=== PATIENT | female | born 1980 | race Caucasian/White ===

== ENCOUNTER 2017-11-14 09:12 | Emergency (ER) | payer OTHER ==
[2017-11-14 09:18] VITALS: RESP 16; TEMP 98.1
[2017-11-14] MEDS ORDERED: SODIUM CHLORIDE 0.9% 1,000 ML IV ONE (09:27)
[2017-11-14 09:44] LABS: Basophils % (A) 0 %; Eosinophils # (A) 0.3 k/uL (0-0.7); Eosinophils % (A) 5 %; HCT 45.3 % (34.0-46.0); HGB 15.5 gm/dL (11.4-16.0); Lymphocytes # (A) 1.6 k/uL (1.0-4.8); Lymphocytes % (A) 23 %; MCH 32.2 pg (25.0-35.0); MCHC 34.2 g/dL (31.0-37.0); MCV 94.2 fL (80.0-100.0); Mean Platelet Volume 7.6; Monocytes # (A) 0.3 k/uL (0-1.0); Monocytes % (A) 4 %; Neutrophils # (A) 4.7 k/uL (1.3-7.7); Neutrophils % (A) 67 %; Platelet Count 160 k/uL (150-450); RBC 4.81 m/uL (3.80-5.40); RDW 12.9 % (11.5-15.5); WBC 6.9 k/uL (3.8-10.6)
[2017-11-14 09:50] LABS: Appearance,Urine Cloudy (Clear); Bilirubin,Urine Negative (Negative); Blood,Urine Trace (Negative); Color,Urine Yellow; Glucose,Urine (UA) Negative (Negative); Ketones,Urine Negative (Negative); Leukocyte Esterase,Urine Negative (Negative); Mucus,Urine Many /hpf; Nitrite,Urine Negative (Negative); PH, Urine 5.5 (5.0-8.0); Protein,Urine Trace (Negative); RBC,Urine 1 /hpf (0-5); Squamous Epithelial Cell,Urine 8 /hpf (0-4); WBC,Urine 2 /hpf (0-5)
[2017-11-14 09:55] LABS: ALT 27 U/L (9-52); AST 22 U/L (14-36); Albumin 3.9 g/dL (3.5-5.0); Alkaline Phosphatase 52 U/L (38-126); Amylase 50 U/L (30-110); Anion Gap 11 mmol/L; Blood Urea Nitrogen 6 mg/dL (7-17); Carbon Dioxide 24 mmol/L (22-30); Chloride 105 mmol/L (98-107); Glucose 101 mg/dL (74-99); Lipase 71 U/L (23-300); Potassium 3.9 mmol/L (3.5-5.1); Sodium 140 mmol/L (137-145); Total Bilirubin 0.4 mg/dL (0.2-1.3); Total Protein 6.2 g/dL (6.3-8.2)
--- NOTE | 2017-11-14 10:28 | CT ---
EXAMINATION TYPE: CT abdomen pelvis w con DATE OF EXAM: 11/14/2017 COMPARISON: NONE HISTORY: 37-year-old female with abdominal pain-umbilical and infraumbilical areas. TECHNIQUE: Contiguous axial scanning of the abdomen and pelvis following administration of 100 ml Iso nicho 300 IV contrast. Delayed images through the kidneys and coronal/sagittal reconstructions perform ed. CT DLP: 2023.6 mGycm Automated exposure control for dose reduction was used. FINDINGS: Heart normal size without pericardial effusion. Lung bases clear without pleural effusion. Liver enlarged measuring 19.8 cm. No focal liver lesion. Portal venous system is patent. No biliary d uctal dilatation. Adrenal glands, kidneys, spleen with small hilar splenule, and pancreas show no gross abnormality. Some nonenlarged and borderline sized upper to mid abdominal mesenteric lymph nodes measuring up to 6 mm. While the appendix is not discretely visualized, there are no findings to suggest acute appendicitis. There is wall thickening and pericolonic inflammatory fat stranding involving a relatively long segme nt from the mid transverse colon to the upper descending colon. Additional circumferential mild wall thickening from the lower descending colon to the rectum may relate to incomplete distention or addit ional mild colitis. No dilated small bowel, free fluid, or free air. Uterus and both ovaries are visualized with follicular change. Arcuate configuration to the uterus. B ilateral tubal ligation clips. No abnormal fluid collection in the pelvis or pelvic lymphadenopathy. Bones: Mild multilevel degenerative disc disease. IMPRESSION: 1. EXAM POSITIVE FOR MILD ACUTE COLITIS EXTENDING FROM THE MID TRANSVERSE COLON TO THE UPPER DESCENDI NG COLON. NO ABSCESS OR FREE AIR. CORRELATE FOR INFECTIOUS OR INFLAMMATORY CAUSES. 2. ADDITIONAL MILD WALL THICKENING FROM THE LOWER DESCENDING COLON TO THE RECTUM COULD BE SECONDARY T O POOR DISTENTION OR ADDITIONAL MILD COLITIS. 3. HEPATOMEGALY (19.8 CM).
--- NOTE | 2017-11-14 10:46 | ED ---
Abdominal Pain HPI - General Chief Complaint: Abdominal Pain Stated Complaint: Abd.pain Time Seen by Provider: 11/14/17 09:23 Source: patient, RN notes reviewed Mode of arrival: ambulatory Limitations: no limitations - History of Present Illness Initial Comments: 37-year-old female presents emergency Department with chief complaint of abdominal pain 9 days. Patient states pain is progressively getting worse not improving. She has had intermittent nausea and minimal diarrhea. Denies any mom and she is a. Denies fever, chills, headache, dizziness dysuria, hematuria. Patient states that she did have exploratory surgery at age 21 and she's had tubal ligation. Patient denies any current vaginal bleeding or vaginal discharge. Patient states she just underwent a menstrual cycle. Patient states that she's never had pain like this in the past. - Related Data Home Medications Medication Instructions Recorded Confirmed Vitamin C/Biotin [Hair, Skin and 1 tab PO DAILY 11/14/17 11/14/17 Nails] Previous Rx's Medication Instructions Recorded Ciprofloxacin HCl [Cipro] 500 mg PO Q12HR #20 tablet 11/14/17 metroNIDAZOLE [Flagyl] 500 mg PO TID #30 tab 11/14/17 Allergies Allergy/AdvReac Type Severity Reaction Status Date / Time cefaclor [From Ceclor] Allergy Rash/Hives Verified 11/14/17 09:24 Review of Systems ROS Statement: Those systems with pertinent positive or pertinent negative responses have been documented in the HPI. ROS Other: All systems not noted in ROS Statement are negative. Past Medical History Past Medical History: No Reported History History of Any Multi-Drug Resistant Organisms: None Reported Past Surgical History: Tubal Ligation Additional Past Surgical History / Comment(s): Abd, dental Past Psychological History: No Psychological Hx Reported Smoking Status: Current every day smoker Past Alcohol Use History: Occasional Past Drug Use History: None Reported General Exam Limitations: no limitations General appearance: alert, in no apparent distress Head exam: Present: atraumatic, normocephalic, normal inspection Eye exam: Present: normal appearance, PERRL, EOMI. Absent: scleral icterus, conjunctival injection, periorbital swelling Respiratory exam: Present: normal lung sounds bilaterally. Absent: respiratory distress, wheezes, rales, rhonchi, stridor Cardiovascular Exam: Present: regular rate, normal rhythm, normal heart sounds. Absent: systolic murmur, diastolic murmur, rubs, gallop, clicks GI/Abdominal exam: Present: soft, tenderness (Moderate midabdominal tenderness) , normal bowel sounds. Absent: distended, guarding, rebound, rigid Back exam: Absent: CVA tenderness (R), CVA tenderness (L) Skin exam: Present: warm, dry, intact, normal color. Absent: rash Course Vital Signs 11/14/17 11/14/17 09:14 10:50 Temperature 98.1 F Pulse Rate 85 54 L Respiratory 16 16 Rate Blood Pressure 121/86 122/82 O2 Sat by Pulse 99 100 Oximetry Medical Decision Making - Medical Decision Making 37-year-old female presents for abdominal pain 9 days. Patient had lab work, CT which shows colitis. Patient was offered admission versus discharge on oral medications. Patient prefers to be discharged. Patient be discharged on Cipro , Flagyl advised liquid diet and progress as tolerated. She'll follow-up with on-call GI Dr. Betancourt for colonoscopy. Return parameters were discussed. - Lab Data Result diagrams: 11/14/17 09:30 11/14/17 09:30 Lab Results 11/14/17 11/14/17 11/14/17 Range/Units 09:30 09:30 09:30 WBC 6.9 (3.8-10.6) k/uL RBC 4.81 (3.80-5.40) m/uL Hgb 15.5 (11.4-16.0) gm/dL Hct 45.3 (34.0-46.0) % MCV 94.2 (80.0-100.0) fL MCH 32.2 (25.0-35.0) pg MCHC 34.2 (31.0-37.0) g/dL RDW 12.9 (11.5-15.5) % Plt Count 160 (150-450) k/uL Neutrophils % 67 % Lymphocytes % 23 % Monocytes % 4 % Eosinophils % 5 % Basophils % 0 % Neutrophils # 4.7 (1.3-7.7) k/uL Lymphocytes # 1.6 (1.0-4.8) k/uL Monocytes # 0.3 (0-1.0) k/uL Eosinophils # 0.3 (0-0.7) k/uL Basophils # 0.0 (0-0.2) k/uL Sodium 140 (137-145) mmol/L Potassium 3.9 (3.5-5.1) mmol/L Chloride 105 (98-107) mmol/L Carbon Dioxide 24 (22-30) mmol/L Anion Gap 11 mmol/L BUN 6 L (7-17) mg/dL Creatinine 0.64 (0.52-1.04) mg/dL Est GFR (CKD-EPI)AfAm >90 (>60 ml/min/1.73 sqM) Est GFR (CKD-EPI)NonAf >90 (>60 ml/min/1.73 sqM) Glucose 101 H (74-99) mg/dL Calcium 9.0 (8.4-10.2) mg/dL Total Bilirubin 0.4 (0.2-1.3) mg/dL AST 22 (14-36) U/L ALT 27 (9-52) U/L Alkaline Phosphatase 52 (38-126) U/L Total Protein 6.2 L (6.3-8.2) g/dL Albumin 3.9 (3.5-5.0) g/dL Amylase 50 (30-110) U/L Lipase 71 (23-300) U/L Urine Color Urine Appearance (Clear) Urine pH (5.0-8.0) Ur Specific [place] (1.001-1.035) Urine Protein (Negative) Urine Glucose (UA) (Negative) Urine Ketones (Negative) Urine Blood (Negative) Urine Nitrite (Negative) Urine Bilirubin (Negative) Urine Urobilinogen (<2.0) mg/dL Ur Leukocyte Esterase (Negative) Urine RBC (0-5) /hpf Urine WBC (0-5) /hpf Ur Squamous Epith Cells (0-4) /hpf Urine Mucus (None) /hpf Urine HCG, Qual Not Detected (Not Detectd) 11/14/17 Range/Units 09:30 WBC (3.8-10.6) k/uL RBC (3.80-5.40) m/uL Hgb (11.4-16.0) gm/dL Hct (34.0-46.0) % MCV (80.0-100.0) fL MCH (25.0-35.0) pg MCHC (31.0-37.0) g/dL RDW (11.5-15.5) % Plt Count (150-450) k/uL Neutrophils % % Lymphocytes % % Monocytes % % Eosinophils % % Basophils % % Neutrophils # (1.3-7.7) k/uL Lymphocytes # (1.0-4.8) k/uL Monocytes # (0-1.0) k/uL Eosinophils # (0-0.7) k/uL Basophils # (0-0.2) k/uL Sodium (137-145) mmol/L Potassium (3.5-5.1) mmol/L Chloride (98-107) mmol/L Carbon Dioxide (22-30) mmol/L Anion Gap mmol/L BUN (7-17) mg/dL Creatinine (0.52-1.04) mg/dL Est GFR (CKD-EPI)AfAm (>60 ml/min/1.73 sqM) Est GFR (CKD-EPI)NonAf (>60 ml/min/1.73 sqM) Glucose (74-99) mg/dL Calcium (8.4-10.2) mg/dL Total Bilirubin (0.2-1.3) mg/dL AST (14-36) U/L ALT (9-52) U/L Alkaline Phosphatase (38-126) U/L Total Protein (6.3-8.2) g/dL Albumin (3.5-5.0) g/dL Amylase (30-110) U/L Lipase (23-300) U/L Urine Color Yellow Urine Appearance Cloudy H (Clear) Urine pH 5.5 (5.0-8.0) Ur Specific [place] 1.020 (1.001-1.035) Urine Protein Trace H (Negative) Urine Glucose (UA) Negative (Negative) Urine Ketones Negative (Negative) Urine Blood Trace H (Negative) Urine Nitrite Negative (Negative) Urine Bilirubin Negative (Negative) Urine Urobilinogen 2.0 (<2.0) mg/dL Ur Leukocyte Esterase Negative (Negative) Urine RBC 1 (0-5) /hpf Urine WBC 2 (0-5) /hpf Ur Squamous Epith Cells 8 H (0-4) /hpf Urine Mucus Many H (None) /hpf Urine HCG, Qual (Not Detectd) Disposition Clinical Impression: Abdominal pain, Colitis Disposition: HOME SELF-CARE Condition: Stable Instructions: Colitis (ED) Additional Instructions: Please return to the Emergency Department if symptoms worsen or any other concerns. Prescriptions: Ciprofloxacin HCl [Cipro] 500 mg PO Q12HR #20 tablet metroNIDAZOLE [Flagyl] 500 mg PO TID #30 tab Is patient prescribed a controlled substance at d/c from ED?: No Referrals: Jose Laurent DO [Primary Care Provider] - 1-2 days Sade yDe MD [STAFF PHYSICIAN] - 1-2 days Time of Disposition: 10:55
[2017-11-14 10:51] VITALS: BP 122/82; PULSE 54
== END 2017-11-14 11:03 | disposition home or self-care (01) ==
LOC: EC 09:12
DX: K52.9 Noninfective gastroenteritis and colitis, unspecified (principal); F17.200 Nicotine dependence, unspecified, uncomplicated; Z79.899 Other long term (current) drug therapy; Z88.1 Allergy status to other antibiotic agents
CPT/HCPCS: 36415; 80053; 82150; 83690; 85025; 81001; 81025; 74177; 99284; 96360; Q9967

== ENCOUNTER → 2019-02-02 | Outpatient (CLI) | payer OTHER ==
--- NOTE | 2019-02-02 11:52 | MM ---
Reason for exam: screening (asymptomatic). Baseline mammogram. History: Family history of breast cancer in maternal aunt at age 65. Physical Findings: Nurse Summary: 0.5cm nodule in the left breast at 10 o'clock (nurse TM). MG 3D Screening Mammo W/Cad Bilateral CC and MLO view(s) were taken. The breast tissue is heterogeneously dense. This may lower the sensitivity of mammography. Left palpable marker at 8-10 o'clock. Underlying 1cm focal asymmetry. Subareolar asymmetric density right MLO view does not persist on 3D. These results were verbally communicated with the patient and result sheet given to the patient on 02/02/19. ASSESSMENT: Incomplete: need additional imaging evaluation, BI-RAD 0 RECOMMENDATION: Ultrasound of the left breast. (targeted to palpable)
--- NOTE | 2019-02-02 11:53 | USB ---
Reason for exam: additional evaluation requested from abnormal screening. History: Family history of breast cancer in maternal aunt at age 65. US Breast Workup Limited LT Left limited breast ultrasound including focal area of concern, retroareolar and axilla demonstrates a 11 x 6 x 10mm oval, solid, hypoechoic lesion at 9 o'clock BB. Scanned 6-9 o'clock. These results were verbally communicated with the patient and result sheet given to the patient on 02/02/19. ASSESSMENT: Suspicious, BI-RAD 4 RECOMMENDATION: Surgical consultation and ultrasound core biopsy of the left breast. Called Dr. Brdaley with mammographic findings and has scheduled an appointment for the patient for 03/19/19 at 10:[address] Jolly. Biopsy scheduled for 03/19/19 at 12:20. PRELIMINARY REPORT CALLED AND FAXED TO DR. JOLLY ON 02/02/19.
== END | disposition home or self-care (01) ==
LOC: RADMAMWWP 09:39
PROVIDERS: ATTEND Obstetrics & Gynecology
DX: Z08 Encounter for follow-up examination after completed treatment for malignant neoplasm (principal); Z80.3 Family history of malignant neoplasm of breast; R92.8 Other abnormal and inconclusive findings on diagnostic imaging of breast
CPT/HCPCS: 77063; 77067

== ENCOUNTER → 2019-03-19 | Day surgery (SDC) | payer OTHER ==
[2019-03-19 12:11] VITALS: RESP 16; BMI 38.8
[2019-03-19 12:56] VITALS: BP 130/68; PULSE 70; TEMP 97.9
--- NOTE | 2019-03-19 14:42 | USB ---
EXAMINATION TYPE: US biopsy breast VAD LT, Postbiopsy diagnostic mammo LT wo CAD DATE OF EXAM: 03/19/2019 CLINICAL HISTORY: 38-year-old female R92.8 abn mammogram. TECHNIQUE: Ultrasound guided core biopsy of the left breast. COMPARISON: 02/02/2019 FINDINGS: The procedure of ultrasound guided core biopsy was explained to the patient. Benefits, alternatives, and risks were discussed. An informed consent was then obtained. The patient was placed in supine positioning for imaging and for the procedure. The overlying skin was prepped and draped in usual sterile fashion. Lidocaine was used as anesthetic into the skin followed by lidocaine/epinephrine mixture into the subcutaneous tissue up to area of concern in the 9:00 left breast. Under ultrasound guidance, a 13-gauge vacuum-assisted mammotome Elite biopsy gun device was used to obtain 5 core samples. Following this, a ribbon clip was left in lesion. The patient tolerated the procedure well without any immediate complication. The patient was kept in the radiology department for short stay after the procedure and then discharged home in stable condition. Postprocedure mammogram shows ribbon clip at the mammographic mass anterior 9:00 position. IMPRESSION: Successful, uncomplicated ultrasound guided core biopsy of area of concern in the 9:00 left breast, full pathology results to follow. Fibroadenoma is suspected. Pathology Results: Benign LEFT BREAST LESION AT 9:00 POSITION, NEEDLE CORE BIOPSIES: Focal PASH with background fibrocystic changes. Recommendation Follow up mammogram of the left breast in 6 months Surgical consult of the left breast. (YAYA) KEHINDE
== END ==
LOC: RADUSWWP 10:25
PROVIDERS: ATTEND Surgery
DX: N60.12 Diffuse cystic mastopathy of left breast (principal); N64.89 Other specified disorders of breast
CPT/HCPCS: 88305; 77065; 19083; A4648; J2001; 88341

== ENCOUNTER → 2019-03-19 | Outpatient (CLI) | payer OTHER ==
[2019-03-19 10:44] VITALS: BP 133/87; PULSE 78; RESP 16; TEMP 98.3; BMI 38.8
--- NOTE | 2019-03-19 11:30 | P.GSHP ---
History of Present Illness H&P Date: 03/19/19 Chief Complaint: abnormal ultrasound María Elena is a 38 -year-old white female who had her first ever mammogram performed on . This revealed a 1 cm focal asymmetry in the left breast near palpable area of concern. An ultrasound was recommended. The ultrasound revealed an 11 x 10 cm solid lesion at 9:00 the breast was scanned from 6-9. This was considered suspicious BIRADS 4 and ultrasound-guided core biopsy was recommended. The patient had not felt anything of concern in her breasts. The patient states that time she has twinges of pain in her breast it is greatest in the inner quadrants of the left breast. The pain is not related to her menstrual cycle. 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 The pain is in her breasts. Approximately 2 months ago the patient did note bilateral milky nipple discharge and this has stopped. The patient states her breasts become engorged prior to her menstrual cycle but otherwise no specific changes in her breasts. Her menstrual cycles are irregular. She is having a D&C next month. The patient drinks approximately a half a pot of coffee per day. The patient smokes a half a pack of cigarettes per day she is not exposed to secondhand smoke. She doesn't really chocolate. Family History: 1. maternal aunt: bilateral mastectomy at 59 2. maternal aunt: ovarian cancer 3. maternal aunt: cervical cancer Hormonal History: menarche: 17 , breast fed: yes, first born at 22 BCP: 9 months hormones: none Surgical history: 1. exploratory lap endometriosis 2. tubal 3. dental surgery 4. colonoscopy Medical history: none Social History: smoke: 1/2- 1 PPD for 24 years alcohol: daily drugs: none - Constitutional Constitutional: Denies chills, Denies fever - EENT Eyes: denies blurred vision, denies pain Ears: deny: decreased hearing, tinnitus Ears, nose, mouth and throat: Denies headache, Denies sore throat - Breasts Breasts: bilateral: as per HPI - Cardiovascular Cardiovascular: Denies chest pain, Denies shortness of breath - Respiratory Comment: smoker - Gastrointestinal Gastrointestinal: Denies abdominal pain, Denies diarrhea, Denies nausea, Denies vomiting - Genitourinary (Female) Genitourinary: Denies dysuria, Denies hematuria - Menstruation Menstruation: Reports cycle variable - Musculoskeletal Musculoskeletal: Reports myalgias - Integumentary Integumentary: Reports rash, Denies pruritus - Neurological Neurological: Reports numbness - Psychiatric Psychiatric: Reports anxiety - Endocrine Endocrine: Denies fatigue, Denies weight change - Hematologic/Lymphatic Comment: none - Allergic/Immunologic Allergic/Immunologic: Reports as per HPI Past Medical History Past Medical History: No Reported History History of Any Multi-Drug Resistant Organisms: None Reported Past Surgical History: Tubal Ligation Additional Past Surgical History / Comment(s): Exploratory abdominal surgery, dental Past Psychological History: Anxiety Smoking Status: Current every day smoker Past Alcohol Use History: Daily Past Drug Use History: None Reported Medications and Allergies Home Medications Medication Instructions Recorded Confirmed Type Ibuprofen [Advil] 200 mg PO Q6HR PRN 03/09/19 03/19/19 History Allergies Allergy/AdvReac Type Severity Reaction Status Date / Time cefaclor [From Ceclor] Allergy Dyspnea Verified 03/19/19 10:39 Surgical - Exam Vital Signs Temp Pulse Resp BP Pulse Ox 98.3 F 78 16 133/87 99 03/19/19 10:40 03/19/19 10:40 03/19/19 10:40 03/19/19 10:40 03/19/19 10:40 BMI 38.8 - General obese - Eyes normal ocular movement - ENT no hearing loss, no congestion - Neck no masses, trachea midline, no lymphadectomy - Cardiovascular Rhythm: regular Heart Sounds: normal: S1, S2 - Abdomen Abdomen: soft, non tender, no guarding, no rigid, no rebound - Integumentary Mild rash under the right breast would be consistent with fungal infection, - Neurologic no disoriented, no combative - Musculoskeletal normal gait - Psychiatric oriented to time, oriented to person, oriented to place, speech is normal, memory intact Breast examination: BRA 42DDD Right breast: Ptotic, pockmarks over skin were patient has scratched pimples Slight rash under the left breast consistent with fungal infection Multiple positional exam fibrocystic changes, no dominant masses or nodules of concern Right axilla: No adenopathy of concern Left breast: Multi-positional exam slight fullness at the 12 o'clock position, fibrocystic changes, no nipple discharge Left axilla: No adenopathy of concern Results Mammogram and ultrasound results reviewed Assessment and Plan Assessment: Impression: 1. Fibrocystic breast changes 2. Strong family history of cancer 3. Family history of breast cancer 4. Abnormal mammogram of the left breast 5. Abnormal ultrasound of the left breast 6. Intermittent breast discomfort, felt to be related to fibrocystic breast changes Plan: 1. Ultrasound-guided core biopsy of the left breast 2. Nystatin to the area of fungal infection in the left breast 3. Patient notes any more pimples on the breast would recommend not scratching, and calling if needed 4. We have discussed the relationship between fibrocystic breast changes/pain and caffeine/theophylline/nicotine the patient is aware and will consider cutting back 5. Follow up after ultrasound core biopsy of the left breast CC: DR. Bradley, Dr. Jose Laurent
== END | disposition home or self-care (01) ==
LOC: WWCWWP 10:24
PROVIDERS: ATTEND Surgery
DX: Z53.9 Procedure and treatment not carried out, unspecified reason (principal)

== ENCOUNTER → 2019-03-26 | Outpatient (CLI) | payer OTHER ==
[2019-03-26 09:30] VITALS: BP 127/79; PULSE 80; RESP 18; TEMP 98.2; BMI 38.8
--- NOTE | 2019-03-26 10:14 | P.PN ---
Subjective Progress Note Date: 03/26/19 Principal diagnosis: results of core biopsy of left breast María Elena is a 38-year-old white female status post ultrasound-guided core biopsy of an area of concern in the left breast and [id number]. Pathology revealed focal PASH. The actual ultrasound biopsy radiograph was reviewed with the radiologist. This is felt to be concordant. The patient postprocedure developed some swelling and ecchymosis. She is doing well. She has not had any fever or chills. Objective - Vital Signs Vital signs: Vital Signs Temp 98.2 F 03/26/19 09:25 Pulse 80 03/26/19 09:25 Resp 18 03/26/19 09:25 BP 127/79 03/26/19 09:25 Pulse Ox 96 03/26/19 09:25 Intake & Output 03/25/19 03/26/19 03/26/19 18:59 06:59 18:59 Weight 112.491 kg - Exam BMI 38.8 - Constitutional General appearance: Present: obese - EENT Eyes: Present: EOMI ENT: Present: hearing grossly normal - Neck Neck: Present: normal ROM - Respiratory Respiratory: bilateral: CTA - Cardiovascular Rhythm: regular Heart sounds: normal: S1, S2 - Integumentary Integumentary Comment(s): echymosis of the left breast at the biopsy site Integumentary: Present: normal turgor - Musculoskeletal Musculoskeletal: Present: gait normal - Psychiatric Psychiatric: Present: A&O x's 3, appropriate affect - Additional findings Additional findings: Left breast: Ecchymosis at biopsy site Biopsy site no evidence of infection Hematoma at biopsy site Right breast: Fungal infection resolved and her right breast Assessment and Plan Assessment: Impression: 1. Patient status post left breast ultrasound-guided core biopsy 2. Pathology: PASH 3. Fibrocystic breast changes 4. Maternal aunt bilateral mastectomy at 59 5. 2 maternal aunts 1 over area and a 1 cervical cancer 6. Fungal infection resolved under right breast Plan: 1. Repeat left breast mammogram and ultrasound in 6 months with physician exam 2. Is fungal infection recurs treated again with the nystatin 3. Monthly breast self exams if anything of concern patient will call us 20 minutes spent with the patient. CC: DR. Jose Laurent
== END | disposition home or self-care (01) ==
LOC: WWCWWP 09:11
PROVIDERS: ATTEND Surgery
DX: Z53.9 Procedure and treatment not carried out, unspecified reason (principal)

== ENCOUNTER 2019-03-30 06:36 | Day surgery (SDC) | payer OTHER ==
--- NOTE | 2019-03-29 10:14 | P.HPOB ---
History of Present Illness H&P Date: 03/29/19 Chief Complaint: Menorrhagia with irregular cycle This is a 38-year-old female 2 para 2 who presents for dilation and curettage with hysteroscopy and NovaSure endometrial ablation secondary to menorrhagia with irregular cycle. She complains of heavy irregular menses and intermenstrual bleeding occurring over at least 6 years. Her pelvic ultrasound showed a uterus measuring 9.7 x 4.7 x 4.1 cm with an endometrial stripe thickness of 4 mm an anterior fibroid measuring 1.47 m. Normal ovaries were noted. She would like definitive surgical treatment to control her bleeding issues. She is a smoker and therefore is not a candidate for oral contraceptives. She has had a previous tubal ligation. Obstetrical history: . History of 2 vaginal deliveries. Gynecologic history: No history of sexual transmitted diseases. She has had a tubal ligation. Social history: She is . She works at [email or web address]. Review of Systems Constitutional: Reports weight gain, Denies chills, Denies fever Eyes: denies blurred vision, denies pain Ears, nose, mouth and throat: Denies headache, Denies sore throat Cardiovascular: Denies chest pain, Denies shortness of breath Respiratory: Denies cough Gastrointestinal: Reports heartburn, Denies abdominal pain, Denies diarrhea, Denies nausea, Denies vomiting Genitourinary: Reports dysmenorrhea, Reports dyspareunia, Reports menorrhagia Menstruation: Reports period heavy Musculoskeletal: Reports low back pain, Reports myalgias Integumentary: Denies pruritus, Denies rash Neurological: Reports numbness, Denies weakness Psychiatric: Reports anxiety, Reports depression Past Medical History Additional Past Medical History / Comment(s): History of endometriosis History of Any Multi-Drug Resistant Organisms: None Reported Past Surgical History: Tubal Ligation Additional Past Surgical History / Comment(s): Laparoscopy with ablation of endometriosis-2003; oral surgery-dentures Past Anesthesia/Blood Transfusion Reactions: Motion Sickness Past Psychological History: No Psychological Hx Reported Smoking Status: Current every day smoker Past Alcohol Use History: Occasional Additional Past Alcohol Use History / Comment(s): 1PPD SINCE AGE 16 YR. Past Drug Use History: None Reported - Past Family History Mother Family Medical History: No Reported History Sister(s) Additional Family Medical History / Comment(s): Endometriosis Medications and Allergies Home Medications Medication Instructions Recorded Confirmed Type Ibuprofen [Advil] 200 mg PO Q6HR PRN 03/09/19 03/26/19 History Allergies Allergy/AdvReac Type Severity Reaction Status Date / Time cefaclor [From [facility]] Allergy Dyspnea Verified 03/26/19 13:42 Exam Osteopathic Statement: *. No significant issues noted on an osteopathic structural exam other than those noted in the History and Physical/Consult. HEENT: Within normal limits Heart: Regular rate and rhythm Lungs: Clear to auscultation bilaterally Abdomen: Soft, nontender Pelvic exam: Uterus is small, nontender, with no adnexal masses palpated. Extremities: Negative Homans Assessment and Plan (1) Menorrhagia with irregular cycle Status: Acute Code(s): N92.1 - EXCESSIVE AND FREQUENT MENSTRUATION WITH IRREGULAR CYCLE SNOMED Code(s): 327502894 Plan: Proceed with dilation and curettage with hysteroscopy and NovaSure endometrial ablation. I have discussed the risks, benefits, and alternative therapies for the above- mentioned procedure and for both sedation/anesthesia as well as necessary blood products administration, if indicated, as they pertain to this patient. The patient has indicated her understanding and acceptance of the risks and procedures discussed.
[~2019-03-30 06:36] MED LIST: Pre Op ABX Message 1 EACH MISC MISCELLANE ONE
[2019-03-30] MEDS ORDERED: KETOROLAC 30 MG/ML 1 ML VIAL IVP SCH (06:41)
[2019-03-30] MEDS ORDERED: LIDOCAINE 1% 20 ML VIAL (10MG/ML) FOR IV START INTRADERMA PRN (06:41)
[2019-03-30] MEDS ORDERED: HYDROmorphone 0.5 MG/0.5 ML SYRINGE IVP PRN (06:41)
[2019-03-30] MEDS ORDERED: DEXAMETHASONE SOD PHOSPHATE 10 MG/ML 1 ML VIAL IV ONE (06:41)
[2019-03-30] MEDS ORDERED: SCOPOLAMINE 1.5MG/72HR PATCH TRANSDERM ONE (06:41)
[2019-03-30] MEDS ORDERED: ONDANSETRON 4 MG/2 ML VIAL IVP ONE (06:41)
[2019-03-30] MEDS ORDERED: METOCLOPRAMIDE 5 MG/ML 2 ML VIAL IVP PRN (06:41)
[2019-03-30] MEDS ORDERED: LACTATED RINGERS 1,000 ML IV SCH (06:41)
[2019-03-30] MEDS ORDERED: fentaNYL (PF) 50 MCG/ML 2 ML AMP ONE (07:24)
[2019-03-30] MEDS ORDERED: LIDOCAINE 1% INJ 10MG/ML (20 ML MDV) ONE (07:24)
[2019-03-30] MEDS ORDERED: KETOROLAC 30 MG/ML 1 ML VIAL ONE (07:24)
[2019-03-30] MEDS ORDERED: PROPOFOL 10 MG/ML 20 ML VIAL IV ONE (07:24)
[2019-03-30] MEDS ORDERED: MIDAZOLAM 2 MG/2 ML VIAL ONE (07:24)
--- NOTE | 2019-03-30 08:03 | P.OP ---
Date of Procedure: 03/30/19 Preoperative Diagnosis: Menorrhagia with irregular cycle Postoperative Diagnosis: Same Procedure(s) Performed: Hysteroscopy with dilation and curettage and NovaSure endometrial ablation Anesthesia: other (Mask general) Surgeon: Ness Bradley Estimated Blood Loss (ml): 10 Pathology: other (Endometrial curettings) Condition: stable Disposition: same day Indications for Procedure: This is a 38-year-old female 2 para 2 who presents for dilation and curettage with hysteroscopy and NovaSure endometrial ablation secondary to menorrhagia with irregular cycle. She complains of heavy irregular menses and intermenstrual bleeding occurring over at least 6 years. Her pelvic ultrasound showed a uterus measuring 9.7 x 4.7 x 4.1 cm with an endometrial stripe thickness of 4 mm an anterior fibroid measuring 1.47 m. Normal ovaries were noted. She would like definitive surgical treatment to control her bleeding issues. She is a smoker and therefore is not a candidate for oral contraceptives. She has had a previous tubal ligation. Operative Findings: Uterus is mid position, sounded to 11 cm. Cervix is sounded to 37 m. Upon hysteroscopy, a dyssynchronous endometrial pattern was noted. Both tubal ostia were visualized. A moderate amount of endometrial curettings are obtained. Description of Procedure: The patient is taken to the operating room. She is placed in the dorsal lithotomy position after general anesthesia was given. She is prepped and draped in the normal sterile fashion. Bladder is drained with a catheter and then removed. Pelvic exam is performed under anesthesia. Uterus is found to be mid position with no adnexal masses. She is placed in slight Trendelenburg position. A right angle retractor is used to visualize the cervix. The anterior lip of the cervix is grasped with a single-tooth tenaculum. Cervix is sounded to 3 cm. Uterus is sounded to 11 cm. Cervix is gently dilated with Katz dilators until a hysteroscope could be passed. Hysteroscopy is performed using normal saline. The above noted findings are noted. Next a polyp forceps is introduced. A moderate amount of tissue was obtained. Next medium-sized size sharp curette was placed. A moderate amount of endometrial curettings were obtained. Next NovaSure array was inserted into the endometrial cavity. Length was set at 6.5 cm and width was determined to be 4.3 cm. Next cavity assessment was completed and passed on the first try. Next NovaSure array was fired at 154 W for 42 seconds. Next the array was removed, inspected and then discarded. Next the hysteroscope was reinserted. Uniform charring was noted. Pictures were taken. Hysteroscope was removed. Single-tooth tenaculum was removed from the anterior lip of the cervix. Minimal bleeding was noted. All other instruments removed from the vagina. Sponge counts were correct. Patient is taken to recovery room in stable condition.
[2019-03-30 08:08] VITALS: TEMP 98.8
[2019-03-30] MEDS: MEPERIDINE 50 MG/ML SYRINGE IVP ONE ×4 (08:18→08:35)
[2019-03-30 09:07] VITALS: RESP 18
[2019-03-30 09:23] VITALS: BP 130/90; PULSE 70
== END 2019-03-30 09:35 | disposition home or self-care (01) ==
LOC: OR 06:36
PROVIDERS: ATTEND Obstetrics & Gynecology
DX: N92.1 Excessive and frequent menstruation with irregular cycle (principal); D25.9 Leiomyoma of uterus, unspecified; F17.200 Nicotine dependence, unspecified, uncomplicated; Z98.51 Tubal ligation status; Z88.1 Allergy status to other antibiotic agents
CPT/HCPCS: 81025; 88305; 58563; J2250; J1100; J2175; J2405; J2001; J3010; J1885; J2704

== ENCOUNTER → 2021-02-23 | Outpatient (CLI) | payer OTHER ==
--- NOTE | 2021-02-24 11:29 | MM ---
Reason for exam: screening (asymptomatic). Last mammogram was performed 1 year and 11 months ago. History: Family history of breast cancer in maternal aunt at age 65. Benign US biopsy breast VAD LT of the left breast, March 19, 2019. Physical Findings: A clinical breast exam by your physician is recommended on an annual basis and results should be correlated with mammographic findings. MG Screening Mammo w CAD Bilateral CC, MLO, and XCCL view(s) were taken. Prior study comparison: March 19, 2019, left breast MG diagnostic mammo LT wo CAD. February 02, 2019, bilateral MG 3d screening mammo w/cad. The breast tissue is heterogeneously dense. This may lower the sensitivity of mammography. Finding: There is a 17 mm oval mass in the lower inner quadrant of the left breast. Increased in size. ASSESSMENT: Incomplete: need additional imaging evaluation, BI-RAD 0 RECOMMENDATION: Ultrasound of the left breast. [facility] will attempt to contact patient to return for ultrasound.
== END | disposition home or self-care (01) ==
LOC: RADMAMWWP 11:05
PROVIDERS: ATTEND Surgery
DX: Z12.31 Encounter for screening mammogram for malignant neoplasm of breast (principal); Z80.3 Family history of malignant neoplasm of breast
CPT/HCPCS: 77067

== ENCOUNTER → 2021-02-28 | Outpatient (CLI) | payer OTHER ==
--- NOTE | 2021-03-01 14:40 | USB ---
Reason for exam: additional evaluation requested from abnormal screening. History: Family history of breast cancer in maternal grandmother and breast cancer in maternal aunt at age 65. Benign US biopsy breast VAD LT of the left breast, March 19, 2019. Physical Findings: Nurse Summary: left breast palpable at 9 o'clock, tender, movable, 1 x 1cm (nurse ts). US Breast Workup Limited LT Left limited breast ultrasound including focal area of concern, retroareolar and axilla demonstrates a 1.6 x 1.0 x 1.5cm oval, smooth, solid, hypoechoic lesion at 9 o'clock, increased in size from 2019. Scanned 6-9 o'clock. These results were verbally communicated with the patient and result sheet given to the patient on 02/28/21. ASSESSMENT: Suspicious, BI-RAD 4 RECOMMENDATION: Ultrasound core biopsy of the left breast. Called office with mammographic findings and has scheduled an appointment for the patient for 03/09/[address] Jolly. Biopsy scheduled for 03/14/21 at 1:00. PRELIMINARY REPORT CALLED AND FAXED TO DR. JOLLY ON 03/01/21.
== END | disposition home or self-care (01) ==
LOC: RADUSWWP 08:44
PROVIDERS: ATTEND Surgery
DX: N64.89 Other specified disorders of breast (principal); Z80.3 Family history of malignant neoplasm of breast

== ENCOUNTER → 2021-03-09 | Outpatient (CLI) | payer OTHER ==
--- NOTE | 2021-03-09 11:05 | P.PN ---
Subjective Progress Note Date: 03/09/21 María Elena is a 40 -year-old white female who had her first ever mammogram performed on . This revealed a 1 cm focal asymmetry in the left breast near palpable area of concern. An ultrasound was recommended. The ultrasound revealed an 11 x 10 cm solid lesion at 9:00 the breast was scanned from -. This was considered suspicious BIRADS 4 and ultrasound-guided core biopsy was recommended. She underwent an ultrasound-guided core biopsy of the lesion on [id number]. Pathology revealed focal PASH with background fibrocystic changes. She underwent a bilateral mammogram and ultrasound on . This revealed a 17 mm oval mass in the lower inner quadrant of the left breast which had incr eased in size. The patient had an ultrasound performed which revealed a 1.6 x 1.5 cm smooth solid hypoechoic lesion at 9:00 increase in size. Ultrasound core biopsy of the lesion was recommended. She states the left breast is tender, she does not feel any discrete lumps masses or nodules of concern in either breast. At this time she is not having any abnormal nipple discharge or skin changes. She had a left breast core biopsy approximately one year ago and has not had any other procedures on her either breast. She's not had any recent history of trauma or infection in the breast. caffiene: 1 pot coffee/day nicotine: stopped smoking 1 1/2 PPD stopped 2 months ago, does vape chocolate: occasional Family History: 1. maternal aunt: bilateral mastectomy at 59 2. maternal aunt: ovarian cancer 3. maternal aunt: cervical cancer Hormonal History: menarche: 17 , breast fed: yes, first born at 24 BCP: 9 months hormones: none Surgical history: 1. exploratory lap endometriosis 2. tubal 3. dental surgery 4. colonoscopy 5. core biopsy of the left breast Medical history: none Social History: smoke: 1/2- 1 PPD for 24 years stopped 2 months ago alcohol: daily drugs: none - Constitutional Constitutional: Denies chills, Denies fever - EENT Eyes: denies blurred vision, denies pain Ears: deny: decreased hearing, tinnitus Ears, nose, mouth and throat: Denies headache, Denies sore throat - Breasts Breasts: bilateral: as per HPI - Cardiovascular Cardiovascular: Denies chest pain, Denies shortness of breath - Respiratory Comment: smoker - Gastrointestinal Gastrointestinal: Denies abdominal pain, Denies diarrhea, Denies nausea, Denies vomiting - Genitourinary (Female) Genitourinary: Denies dysuria, Denies hematuria - Menstruation Menstruation: Reports cycle variable - Musculoskeletal Musculoskeletal: Reports myalgias - Integumentary Integumentary: Reports rash, Denies pruritus - Neurological Neurological: Reports numbness - Psychiatric Psychiatric: Reports anxiety/ depression - Endocrine Endocrine: Denies fatigue, Denies weight change - Hematologic/Lymphatic Comment: Objective - Constitutional General appearance: Present: cooperative - EENT Eyes: Present: EOMI ENT: Present: hearing grossly normal - Neck Neck: Present: normal ROM - Respiratory Respiratory: bilateral: CTA - Cardiovascular Rhythm: regular Heart sounds: normal: S1, S2 - Gastrointestinal General gastrointestinal: Present: soft - Integumentary Integumentary: Present: normal turgor - Musculoskeletal Musculoskeletal: Present: gait normal - Psychiatric Psychiatric: Present: A&O x's 3, appropriate affect, intact judgment & insight - Additional findings Additional findings: Breast Exam: BRA: 42DDD inspection: bilateral grade 3 ptosis palpation: right breast: Multi-positional exam fibrocystic changes no dominant masses or nodules of concern Right axilla: No adenopathy of concern Left breast: Multi-positional exam fibrocystic changes no dominant masses or nodules of concern particularly attention is paid to the 9 o'clock position no lesions are noted. Left axilla: No adenopathy of concern Assessment and Plan Assessment: Impression: 1. Radiographic abnormality left breast Plan: 1. Ultrasound-guided core biopsy left breast 2. 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 We will therefore request that she do light work for week after the biopsy. CC: Dr Laurent
[2021-03-09 11:15] VITALS: BP 113/79; PULSE 87; RESP 18; TEMP 99
== END ==
LOC: WWCWWP 10:45
PROVIDERS: ATTEND Surgery
DX: N63.24 Unspecified lump in the left breast, lower inner quadrant (principal); R92.8 Other abnormal and inconclusive findings on diagnostic imaging of breast; F17.290 Nicotine dependence, other tobacco product, uncomplicated; Z88.1 Allergy status to other antibiotic agents

== ENCOUNTER → 2021-03-14 | Day surgery (SDC) | payer OTHER ==
[2021-03-14 12:22] VITALS: RESP 12
[2021-03-14 13:31] VITALS: BP 123/80; PULSE 87; TEMP 98.7
--- NOTE | 2021-03-14 13:54 | USB ---
EXAMINATION TYPE: US biopsy breast VAD LT, MG diagnostic mammo LT wo CAD DATE OF EXAM: 03/14/2021 CLINICAL HISTORY: R92.8 ABNORMAL MAMMOGRAM. Abnormal ultrasound. Enlarging lesion. TECHNIQUE: Ultrasound guided core biopsy of left breast with clip placement and follow-up diagnostic mammogram. COMPARISON: Prior ultrasound February 28, 2021 and older studies. FINDINGS: The procedure of ultrasound guided core biopsy was explained to the patient. Benefits, alt ernatives, and risks were discussed. An informed consent was then obtained. The patient was placed in supine positioning for imaging and for the procedure. Preprocedure ultraso und redemonstrates round heterogeneous hypoechoic solid lesion with vascularity at the o'clock positi on zone BC in the left breast measuring near 1.5 cm long axis. The overlying skin was prepped and krishna ped in usual sterile fashion. Lidocaine is used as anesthetic into the skin and subcutaneous tissue u p to area of concern in the left breast. Under ultrasound guidance, a 12-gauge vacuum assisted biopsy gun device was used to obtain 2 core shira ples. Following this, a biopsy clip was left in lesion. The patient tolerated the procedure well without any immediate complication. The patient was kept in the radiology department for short stay after the procedure and then discharged home in stable condi tion. Postprocedure mammogram redemonstrates known mass with second biopsy clip from today's procedure kitty g posterior margin. IMPRESSION: Successful, uncomplicated ultrasound guided core biopsy of area of concern in the left br east, full pathology results to follow. Low index of suspicion at time of procedure.
== END ==
LOC: RADUSWWP 12:03
PROVIDERS: ATTEND Surgery
DX: D24.2 Benign neoplasm of left breast (principal); R92.8 Other abnormal and inconclusive findings on diagnostic imaging of breast
CPT/HCPCS: 88305; 77065; 19083; A4648; J2001

== ENCOUNTER → 2021-03-24 | Outpatient (CLI) | payer OTHER ==
[2021-03-24 13:33] VITALS: BP 121/81; PULSE 87; RESP 16; TEMP 97.7
--- NOTE | 2021-03-24 14:07 | P.PN ---
Subjective Progress Note Date: 03/24/21 Principal diagnosis: Fungal infection under both breast, core biopsy fibroadenoma María Elena is a 40 -year-old white female who had her first ever mammogram performed on . This revealed a 1 cm focal asymmetry in the left breast near palpable area of concern. An ultrasound was recommended. The ultrasound revealed an 11 x 10 cm solid lesion at 9:00 the breast was scanned from 6-. This was considered suspicious BIRADS 4 and ultrasound-guided core biopsy was recommended. She underwent an ultrasound-guided core biopsy of the lesion on [id number]. Pathology revealed focal PASH with background fibrocystic changes. She underwent a bilateral mammogram and ultrasound on . This revealed a 17 mm oval mass in the lower inner quadrant of the left breast which had increased in size. The patient had an ultrasound performed which revealed a 1.6 x 1.5 cm smooth solid hypoechoic lesion at 9:00 increase in size. Ultrasound core biopsy of the lesion was recommended. She states the left breast is tender, she does not feel any discrete lumps masses or nodules of concern in either breast. At this time she is not having any abnormal nipple discharge or skin changes. She had a left breast core biopsy approximately one year ago and has not had any other procedures on her either breast. She's not had any recent history of trauma or infection in the breast. Ultrasound core biopsy of the 9:00 left breast lesion was preformed on 03-14-21, this was a fibroadenoma. caffiene: 1 pot coffee/day nicotine: stopped smoking 1 1/2 PPD stopped 2 months ago, does vape chocolate: occasional Family History: 1. maternal aunt: bilateral mastectomy at 59 2. maternal aunt: ovarian cancer 3. maternal aunt: cervical cancer Hormonal History: menarche: 17 , breast fed: yes, first born at 24 BCP: 9 months hormones: none Surgical history: 1. exploratory lap endometriosis 2. tubal 3. dental surgery 4. colonoscopy 5. core biopsy of the left breast Medical history: none Social History: smoke: 1/2- 1 PPD for 24 years stopped 2 months ago alcohol: daily drugs: none - Constitutional Constitutional: Denies chills, Denies fever - EENT Eyes: denies blurred vision, denies pain Ears: deny: decreased hearing, tinnitus Ears, nose, mouth and throat: Denies headache, Denies sore throat - Breasts Breasts: bilateral: as per HPI - Cardiovascular Cardiovascular: Denies chest pain, Denies shortness of breath - Respiratory Comment: smoker - Gastrointestinal Gastrointestinal: Denies abdominal pain, Denies diarrhea, Denies nausea, Denies vomiting - Genitourinary (Female) Genitourinary: Denies dysuria, Denies hematuria - Menstruation Menstruation: Reports cycle variable - Musculoskeletal Musculoskeletal: Reports myalgias - Integumentary Integumentary: Reports rash, Denies pruritus - Neurological Neurological: Reports numbness - Psychiatric Psychiatric: Reports anxiety/ depression - Endocrine Endocrine: Denies fatigue, Denies weight change - Hematologic/Lymphatic Comment: Objective - Vital Signs Vital signs: Vital Signs Temp 97.7 F 03/24/21 13:28 Pulse 87 03/24/21 13:28 Resp 16 03/24/21 13:28 BP 121/81 03/24/21 13:28 Pulse Ox Intake & Output 03/23/21 03/24/21 03/24/21 18:59 06:59 18:59 Weight 102.058 kg - Constitutional General appearance: Present: cooperative - EENT Eyes: Present: EOMI ENT: Present: hearing grossly normal - Neck Neck: Present: normal ROM - Respiratory Respiratory: bilateral: CTA - Cardiovascular Heart sounds: normal: S1, S2 - Integumentary Integumentary: Present: normal turgor - Musculoskeletal Musculoskeletal: Present: gait normal - Psychiatric Psychiatric: Present: A&O x's 3, appropriate affect - Additional findings Additional findings: Breast examination: Left breast biopsy site clean and dry no evidence of any infection Fungal infection noted under both breasts Assessment and Plan Assessment: Impression: 1. Asymptomatic left breast fibroadenoma on core biopsy 2. Fungal infection under both breasts 3. Fibrocystic breast changes Plan: 1. Prescription for nystatin given 2. Repeat left breast ultrasound in 6 months with physician exam at that time I have discussed with the patient watchful observance of the fibroadenoma. This is not malignant or premalignant. She does not wish surgical excision at this time. If this is growing on surveillance that she would consider in the future. Cc: Dr. Laurent
== END ==
LOC: WWCWWP 12:57
PROVIDERS: ATTEND Surgery
DX: D24.2 Benign neoplasm of left breast (principal); N60.19 Diffuse cystic mastopathy of unspecified breast; B36.8 Other specified superficial mycoses; F17.290 Nicotine dependence, other tobacco product, uncomplicated; Z88.1 Allergy status to other antibiotic agents

== ENCOUNTER → 2021-09-14 | Outpatient (CLI) | payer OTHER ==
--- NOTE | 2021-09-14 15:00 | USB ---
Reason for exam: follow-up at short interval from prior study. History: Family history of breast cancer in maternal grandmother and breast cancer in maternal aunt at age 65. Benign US biopsy breast VAD LT of the left breast, March 14, 2021. Benign US biopsy breast VAD LT of the left breast, March 19, 2019. Physical Findings: A clinical breast exam by your physician is recommended on an annual basis and results should be correlated with mammographic findings. US Breast Limited LT Left limited breast ultrasound including focal area of concern, retroareolar and axilla demonstrates a 1.6 x 1.4 x 0.9cm oval, solid, hypoechoic, vascular lesion at 9 o'clock biopsied area. Stable benign fibroadenoma biopsy proven. Results were given to the patient verbally at the time of the exam. ASSESSMENT: Benign, BI-RAD 2 RECOMMENDATION: Return to routine screening mammogram schedule for both breasts. Back on schedule.
== END | disposition home or self-care (01) ==
LOC: RADUSWWP 14:11
PROVIDERS: ATTEND Surgery
DX: R92.8 Other abnormal and inconclusive findings on diagnostic imaging of breast (principal); Z80.3 Family history of malignant neoplasm of breast

== ENCOUNTER → 2021-09-21 | Outpatient (CLI) | payer OTHER ==
--- NOTE | 2021-09-21 12:30 | P.PN ---
Subjective Progress Note Date: 09/21/21 Principal diagnosis: fibroadenoma right breast Fungal infection under both breast, core biopsy fibroadenoma María Elena is a 40 -year-old white female who had her first ever mammogram performed on . This revealed a 1 cm focal asymmetry in the left breast near palpable area of concern. An ultrasound was recommended. The ultrasound revealed an 11 x 10 cm solid lesion at 9:00 the breast was scanned from -. This was considered suspicious BIRADS 4 and ultrasound-guided core biopsy was recommended. She underwent an ultrasound-guided core biopsy of the lesion on [id number]. Pathology revealed focal PASH with background fibrocystic changes. She underwent a bilateral mammogram and ultrasound on . This revealed a 17 mm oval mass in the lower inner quadrant of the left breast which had increased in size. The patient had an ultrasound performed which revealed a 1.6 x 1.5 cm smooth solid hypoechoic lesion at 9:00 increase in size. Ultrasound core biopsy of the lesion was recommended. She states the left breast is tender, she does not feel any discrete lumps masses or nodules of concern in either breast. At this time she is not having any abnormal nipple discharge or skin changes. She had a left breast core biopsy approximately one year ago and has not had any other procedures on her either breast. She's not had any recent history of trauma or infection in the breast. Ultrasound core biopsy of the 9:00 left breast lesion was preformed on 03-14-21, this was a fibroadenoma. 09-21-21 The patient had a left breast ultrasound on 09-14-21. This revealed the fibroadenoma was stable at 1.6 by 1.4 by 0.9 CM. The patient complains of a rash over her upper right breast. She has not complained of any lumps masses or nodules of concern in either breast. She is not complaining of any nipple discharge or skin changes She has had a similar thing in the past and was told it was atopic dermatitis and she was recommended to have to go tanning which she did and this resolved. Recently she started tanning again and initially went away but then came back. She has been using hydrocortisone cream without any results. caffiene: 1 pot coffee/day now down to 2 cups/day nicotine: stopped smoking 1 1/2 PPD stopped 2 months ago, does vape chocolate: occasional Family History: 1. maternal aunt: bilateral mastectomy at 59 2. maternal aunt: ovarian cancer 3. maternal aunt: cervical cancer Hormonal History: menarche: 17 , breast fed: yes, first born at 24 BCP: 9 months hormones: none Surgical history: 1. exploratory lap endometriosis 2. tubal 3. dental surgery 4. colonoscopy 5. core biopsy of the left breast Medical history: none Social History: smoke: 1/2- 1 PPD for 24 years stopped 2 months ago alcohol: daily drugs: none - Constitutional Constitutional: Denies chills, Denies fever - EENT Eyes: denies blurred vision, denies pain Ears: deny: decreased hearing, tinnitus Ears, nose, mouth and throat: Denies headache, Denies sore throat - Breasts Breasts: bilateral: as per HPI - Cardiovascular Cardiovascular: Denies chest pain, Denies shortness of breath - Respiratory Comment: smoker - Gastrointestinal Gastrointestinal: Denies abdominal pain, Denies diarrhea, Denies nausea, Denies vomiting - Genitourinary (Female) Genitourinary: Denies dysuria, Denies hematuria - Menstruation Menstruation: Reports cycle variable - Musculoskeletal Musculoskeletal: Reports myalgias - Integumentary Integumentary: Reports rash, Denies pruritus - Neurological Neurological: Reports numbness - Psychiatric Psychiatric: Reports anxiety/ depression - Endocrine Endocrine: Denies fatigue, Denies weight change - Hematologic/Lymphatic Comment: Objective - Constitutional General appearance: Present: cooperative - EENT Eyes: Present: EOMI ENT: Present: hearing grossly normal - Neck Neck: Present: normal ROM - Respiratory Respiratory: bilateral: CTA - Cardiovascular Rhythm: regular Heart sounds: normal: S1, S2 - Integumentary Integumentary Comment(s): rash over the upper aspect of the right breast/ about 3 cm by 4 cm in size and raised and ithches; she has been using hydrocortisone cream without any results Integumentary: Present: normal turgor - Musculoskeletal Musculoskeletal: Present: gait normal - Psychiatric Psychiatric: Present: A&O x's 3, appropriate affect, intact judgment & insight - Additional findings Additional findings: Breast Exam: BRA: 42G inspection: bilateral grade 3 ptosis Palpation: Right breast: Multiple positional exam fibrocystic changes no dominant masses or nodules of concern, there is an area of rash approximately 4 x 3 cm in size at the 12:00 upper area of the breast/chest wall no underlying masses are noted Right axilla: No adenopathy of concern Left breast: Multiple positional exam fibrocystic changes no dominant masses or nodules of concern Left axilla: No adenopathy of concern Assessment and Plan Assessment: Impression: Fibrocystic breast changes Rash over upper aspect of the right breast at 12 o'clock position Stable fibroadenoma left breast Plan: bilateral mammogram of the breast in February with appointment at that time Patient is going to follow up with her primary care doctor regarding the rash on her right breast Cc: Dr. Laurent
[2021-09-21 14:18] VITALS: BP 117/79; PULSE 97; RESP 13; TEMP 97.8
== END ==
LOC: WWCWWP 10:22
PROVIDERS: ATTEND Surgery
DX: N60.11 Diffuse cystic mastopathy of right breast (principal); D24.2 Benign neoplasm of left breast; Z87.891 Personal history of nicotine dependence; N64.89 Other specified disorders of breast; Z88.1 Allergy status to other antibiotic agents

== ENCOUNTER → 2022-03-15 | Outpatient (CLI) | payer OTHER ==
--- NOTE | 2022-03-16 07:47 | MM ---
Reason for Exam: Screening (asymptomatic). Last screening mammogram was performed 12 month(s) ago. Patient History: Menarche at age 16. First Full-Term at age 23. Premenopausal. Patient has history of breast feeding. 03/14/2021, Benign Core Biopsy on the left side. 03/19/2019, Benign Core Biopsy on the left side. Maternal grandmother had breast cancer. Maternal aunt had breast cancer, age 65. Last menstrual period: 03/12/2022 Risk Values: Tierra 5 year model risk: 1.1%. NCI Lifetime model risk: 13.4%. Prior Study Comparison: 02/02/2019 Bilateral Screening Mammogram, [facility]. 03/19/2019 Left Diagnostic Mammogram, [facility]. 02/23/2021 Bilateral Screening Mammogram, [facility]. 03/14/2021 Left Diagnostic Mammogram, [facility]. Tissue Density: There are scattered fibroglandular densities. Findings: Analyzed By CAD. There is no suspicious group of microcalcifications or new suspicious mass in either breast. Stable previously sampled mass left breast. Overall Assessment: Benign, BI-RAD 2 Management: Screening Mammogram of both breasts in 1 year. A clinical breast exam by your physician is recommended on an annual basis and results should be correlated with mammographic findings. Electronically signed and approved by: Danial Scott M.D. Radiologis
== END | disposition home or self-care (01) ==
LOC: RADMAMWWP 08:45
PROVIDERS: ATTEND Surgery
DX: Z12.31 Encounter for screening mammogram for malignant neoplasm of breast (principal); Z80.3 Family history of malignant neoplasm of breast
CPT/HCPCS: 77067

== ENCOUNTER → 2022-04-27 | Outpatient (CLI) | payer OTHER ==
[2022-04-27 09:11] VITALS: BP 137/88; PULSE 83; RESP 17; TEMP 97.6
--- NOTE | 2022-04-27 10:00 | P.PN ---
Subjective Progress Note Date: 04/27/22 Principal diagnosis: fibroadenoma/ fibrocystic breast disease fibroadenoma right breast core biopsy fibroadenoma María Elena is a 40 -year-old white female who had her first ever mammogram performed on . This revealed a 1 cm focal asymmetry in the left breast near palpable area of concern. An ultrasound was recommended. The ultrasound revealed an 11 x 10 cm solid lesion at 9:00 the breast was scanned from -. This was considered suspicious BIRADS 4 and ultrasound-guided core biopsy was recommended. She underwent an ultrasound-guided core biopsy of the lesion on [id number]. Pathology revealed focal PASH with background fibrocystic changes. She underwent a bilateral mammogram and ultrasound on . This revealed a 17 mm oval mass in the lower inner quadrant of the left breast which had increased in size. The patient had an ultrasound performed which revealed a 1.6 x 1.5 cm smooth solid hypoechoic lesion at 9:00 increase in size. Ultrasound core biopsy of the lesion was recommended. She states the left breast is tender, she does not feel any discrete lumps masses or nodules of concern in either breast. At this time she is not having any abnormal nipple discharge or skin changes. She had a left breast core biopsy approximately one year ago and has not had any other procedures on her either breast. She's not had any recent history of trauma or infection in the breast. Ultrasound core biopsy of the 9:00 left breast lesion was preformed on 03-14-21, this was a fibroadenoma. 09-21-21 The patient had a left breast ultrasound on 09-14-21. This revealed the fibroadenoma was stable at 1.6 by 1.4 by 0.9 CM. The patient complains of a rash over her upper right breast. She has not complained of any lumps masses or nodules of concern in either breast. She is not complaining of any nipple discharge or skin changes She has had a similar thing in the past and was told it was atopic dermatitis and she was recommended to have to go tanning which she did and this resolved. Recently she started tanning again and initially went away but then came back. She has been using hydrocortisone cream without any results. 04-27-22 Patient underwent a bilateral screening mammogram on [id number]. This was benign BIRADS 2. The patient does not complain of any lumps masses or nodules of concern in either breast. She has a known fibroadenoma of the left breast which has been stable. caffiene: 1 pot coffee/day now down to 2 cups/day nicotine: stopped smoking 1 1/2 PPD stopped 2 months ago, does vape chocolate: occasional Family History: 1. maternal aunt: bilateral mastectomy at 59 2. maternal aunt: ovarian cancer 3. maternal aunt: cervical cancer Hormonal History: menarche: 17 , breast fed: yes, first born at 24 BCP: 9 months hormones: none Surgical history: 1. exploratory lap endometriosis 2. tubal 3. dental surgery 4. colonoscopy 5. core biopsy of the left breast Medical history: back pain ? slipped disc Social History: smoke: 1/2- 1 PPD for 24 years stopped 2 months ago alcohol: daily drugs: none - Constitutional Constitutional: Denies chills, Denies fever - EENT Eyes: denies blurred vision, denies pain Ears: deny: decreased hearing, tinnitus Ears, nose, mouth and throat: Denies headache, Denies sore throat - Breasts Breasts: bilateral: as per HPI - Cardiovascular Cardiovascular: Denies chest pain, Denies shortness of breath - Respiratory Comment: smoker - Gastrointestinal Gastrointestinal: Denies abdominal pain, Denies diarrhea, Denies nausea, Denies vomiting - Genitourinary (Female) Genitourinary: Denies dysuria, Denies hematuria - Menstruation Menstruation: Reports cycle variable - Musculoskeletal Musculoskeletal: Reports myalgias - Integumentary Integumentary: Reports rash, Denies pruritus - Neurological Neurological: Reports numbness - Psychiatric Psychiatric: Reports anxiety/ depression - Endocrine Endocrine: Denies fatigue, Denies weight change - Hematologic/Lymphatic Comment: Objective - Vital Signs Vital signs: Vital Signs Temp 97.6 F 04/27/22 09:09 Pulse 83 04/27/22 09:09 Resp 17 04/27/22 09:09 BP 137/88 04/27/22 09:09 Pulse Ox 99 04/27/22 09:09 FiO2 Intake & Output 04/26/22 04/27/22 04/27/22 18:59 06:59 18:59 Weight 112.491 kg - Exam BMI: 38.8 - Constitutional General appearance: Present: cooperative - EENT Eyes: Present: EOMI ENT: Present: hearing grossly normal - Neck Neck: Present: normal ROM - Respiratory Respiratory: bilateral: CTA - Cardiovascular Rhythm: regular Heart sounds: normal: S1, S2 - Integumentary Integumentary: Present: normal turgor - Musculoskeletal Musculoskeletal: Present: gait normal - Psychiatric Psychiatric: Present: A&O x's 3, appropriate affect, intact judgment & insight - Additional findings Additional findings: Breast Examination: BRA: [id number] Inspection: Grade 2/3 ptosis Palpation: Right breast: Multiple positional exam fibrocystic changes no dominant masses or nodules of concern Right axilla: No adenopathy of concern Left breast: Multi-positional exam fibrocystic changes no dominant masses or nodules of concern Left axilla: No adenopathy of concern Assessment and Plan Assessment: Impression: Fibrocystic breast changes Bilateral mammogram [id number] benign BIRADS 2 Plan: Bilateral mammogram in 1 year with physician exam at that time Cc: Dr. Laurent
== END ==
LOC: WWCWWP 09:02
PROVIDERS: ATTEND Surgery
DX: N60.11 Diffuse cystic mastopathy of right breast (principal); N60.12 Diffuse cystic mastopathy of left breast; Z88.1 Allergy status to other antibiotic agents; F17.200 Nicotine dependence, unspecified, uncomplicated

== ENCOUNTER → 2022-08-22 | Outpatient (CLI) | payer OTHER ==
--- NOTE | 2022-08-22 23:10 | MR ---
EXAMINATION TYPE: MR cspine/lspine wo con DATE OF EXAM: 08/22/2022 9:54 PM CLINICAL INDICATION:Female, 42 years old with history of M54.16 M50.00 M50.10; Cervical- Neck and Arm pain and numbness x1 year/ Lumbar-pain mostly on Rt side and sometimes on Lt side x1 year COMPARISON: 07/03/2022 radiographs. TECHNIQUE: Multi planar, multi sequence imaging was performed utilizing: T1-weighted, T2-weighted, a nd turbo inversion recovery imaging of the cervical and lumbar spine. MR contrast: IV Contrast: None. FINDINGS: CERVICAL: Alignment: The cervical vertebral bodies have preserved heights. Alignment is within normal limits gi lorena patient positioning. Bones: Bone signal is within normal limits. Cord: The spinal cord is unremarkable with regards to their signal intensity and morphology. Discs: Multilevel disc desiccation is present. C2-C3: No significant disc pathology. The spinal canal is patent. No neural foraminal stenosis. C3-C4: No significant disc pathology. The spinal canal is patent. No neural foraminal stenosis. C4-C5: A disc osteophyte complex is present which minimally narrows the ventral subarachnoid space. Bilateral facet and uncovertebral joint arthropathy are present with mild bilateral neural foraminal stenosis. C5-C6: A disc osteophyte complex is present which minimally narrows the ventral subarachnoid space. Bilateral facet and uncovertebral joint arthropathy are present with mild bilateral neural foraminal stenosis. C6-C7: No significant disc pathology. The spinal canal is patent. No neural foraminal stenosis. C7-T1: No significant disc pathology. The spinal canal is patent. No neural foraminal stenosis. LUMBAR: Alignment: The lumbar vertebral bodies have preserved heights and alignment. Cord: The conus medullaris and the distal spinal cord appear unremarkable with regards to their signa l intensity and morphology. Bones/Discs: Bone signal is within normal limits. There is inversion recovery signal within the L5 s uperior endplate consistent with bony edema. Underlying Schmorl's node is suspected. Disc signal is d esiccated L5-S1. Schmorl's node at the superior endplate of L1. Mild osteophyte formation throughout the vertebral bodies. T12-L1: No evidence of significant spinal canal stenosis or neural foraminal stenosis. L1-L2: No evidence of significant spinal canal stenosis or neural foraminal stenosis. L2-L3: No evidence of significant spinal canal stenosis or neural foraminal stenosis. L3-L4: No evidence of significant spinal canal stenosis or neural foraminal stenosis. L4-L5: No evidence of significant spinal canal stenosis or neural foraminal stenosis. L5-S1: Mild disc height loss with associated degeneration changes. The neural foramen and spinal alison l are patent. Suspected acute Schmorl's node at the inferior endplate of L5. Other findings: Left T2 signal simple renal cyst. IMPRESSION: 1. No evidence of significant spinal canal neural femoral stenosis throughout the cervical or lumbar spine. 2. Mild disc degeneration with associated osteoarthritic changes. 3. Suspected acute early Schmorl's node at the inferior endplate of L5 with bony edema.
== END | disposition home or self-care (01) ==
LOC: RADMRIMAIN 18:00
PROVIDERS: ATTEND Neurological Surgery
DX: M50.00 Cervical disc disorder with myelopathy, unspecified cervical region (principal); M50.10 Cervical disc disorder with radiculopathy, unspecified cervical region; M47.26 Other spondylosis with radiculopathy, lumbar region; M51.16 Intervertebral disc disorders with radiculopathy, lumbar region; M50.121 Cervical disc disorder at C4-C5 level with radiculopathy
CPT/HCPCS: 72141; 72148

== ENCOUNTER → 2022-09-20 | Outpatient (CLI) | payer OTHER ==
--- NOTE | 2022-09-20 14:59 | P.PAINPG ---
PQRS Measure Charge Sheet Comment: HISTORY OF PRESENT ILLNESS: 42 yr old female as a referral from Dr Lay presents today w severe and chronic LBP secondary to DDD, facet arthropathy without myelopathy and BL Sacroiliitis for evaluation. Pt states pain level is provoked at 9 /10 in intensity, constant, localized in the lower lumbar spine/ tailbone, sharp, sore in character w shooting pain towards the buttocks. Pain is provoked by sitting for periods of 20 min or more. Pain is alleviated by use of a massage pad at home, medications (Ibu) w little relief, heat, chiropractic treatments semi weekly x 18 visits which ended when her insurance limits were met, repositioning and rest. PMH: Endometriosis PSH: Hysteroscopy w D&C and Ablation (2018), Laparoscopy w Ablation (2003), Tubal Ligation, Oral Surgery SH: 20 pack/ yr tobacco use, Occasional ETOH use, No illicit drug use FH: Mo- Negative. Sis- Endometriosis All: See list Meds: See list REVIEW OF ORGAN SYSTEMS: CONSTITUTIONAL: No fevers or chills. No recent weight loss. NEUROLOGICAL: + numbness and tingling along the distal extremities. No seizure disorders or headaches. MUSCULOSKELETAL: + pain PSYCHIATRIC: Denies current depression or suicidal thoughts. Physical Examinations : Constitutional : Cooperative , not in acute distress . Neurologic : Cranial nerve II to XII intact. No focal neurological deficits. Psychiatric : alert & oriented x 3. Matching mood & appropriate affect. Judgment & insight intact. Musculoskeletal : Cervical Spine Motor strength in the deltoid and biceps: Normal right side. Normal Left side Motor strength biceps and the wrist extensors: Normal right side . Normal left side Motor strength in the triceps muscle: Normal right side. Normal left side Deep tendon reflexes: Normal at the biceps. Normal at Brachioradialis. Normal at triceps Vertebral body tenderness to deep palpation over Cervical facet loading test: positive bilaterally Spurling test: positive bilaterally Neck distraction test: positive bilaterally Dontae sign: positive bilaterally Lumbar spine Motor strength lower extremities ,thigh and legs 5/5 Right side , 5/5 Left side Deep tendon reflexes : Normal Knee Jerk. Normal Ankle Jerk Vertebral body tenderness over Lumbar facet Loading Test: positive Right / positive Left Range of motion of the lumbar spine Flexion 30 degrees, extension 10 degrees Straight Leg Raise test: Left/ Right positive at degree Rafael test: positive right / positive left. Severe tenderness over the Sacroiliac joint on the Right / Left sides Gaenslen test: positive bilaterally Seated flexion test: positive bilaterally. Sacral spine : Severe tenderness over the Sacroiliac joint: right side / left side Range of motion: Flexion of the lumbar spine <60 degrees Range of motion: Extension of the lumbar spine <20 degrees Gaenslen's Test positive Rafael test: positive right side / left side Thigh Thrust Test positive BL BL positive Sacral Thrust Test Imaging: MRI noncontrast of the lumbar spine from 08/22/22 reviewed Assessment/ Plan : BL Sacroiliitis Recommendation of BL SI injection. May need a series for optimal pain relief. Risks, benefits of procedure discussed and patient verbalized understanding. Admits to aspirin or anti- coagulant use or medical history of diabetes. Protocol for discontinuation/ continuation of medications nathanael procedure discussed. [place] 5/325mg #15 NR. Use, side effects, adverse reactions and safe storage were discussed. Pt verbalized understanding. All questions answered. I have spent greater than 30 minutes on patient care today. Dr Loyola was available by phone for the evaluation of this patient. The time was used to review the medical records including relevant urine studies and Prescription history (MAPs), review of the available imaging, evaluation and examination of the patient, coordination of care with the medical staff and if applicable referring physicians, as well as creation of the medical record PQRS Narrative: Smoking Status Current every day smoker Home Medications: Ambulatory Orders Ibuprofen [Advil] 200 mg PO Q6HR PRN 03/09/19 Controlled Substance Measures - Controlled Substance Measures Is patient prescribed a controlled substance at discharge?: Yes When asked, does pt state using other controlled substances?: Yes If prescribed controlled substance>3 days was MAPS reviewed?: Prescribed <3 Days If Rx opioid, was Start Talking consent form obtained?: Yes If opioid is for acute pain is fill amount 7 days or less?: Yes Was information provided regarding opioid addiction?: Yes
[2022-09-20 15:41] VITALS: BP 148/89; PULSE 93; RESP 18; TEMP 98.2
== END ==
LOC: PNWHC3 12:47
PROVIDERS: ATTEND Specialist
DX: M46.1 Sacroiliitis, not elsewhere classified (principal); F17.200 Nicotine dependence, unspecified, uncomplicated; Z88.1 Allergy status to other antibiotic agents
CPT/HCPCS: 99211

== ENCOUNTER → 2022-11-15 | Outpatient (CLI) | payer OTHER ==
[2022-11-15 09:43] VITALS: BP 126/76; PULSE 78; RESP 18
--- NOTE | 2022-11-15 15:25 | P.PAINPG ---
PQRS Measure Charge Sheet Comment: 42 yr old female presents today w severe and chronic LBP secondary to DDD, facet arthropathy without myelopathy and BL Sacroiliitis for evaluation. Pt states pain level is provoked at 9 /10 in intensity, constant, localized in the lower lumbar spine/ tailbone, sharp, sore in character w shooting pain towards the R buttocks. Pain is provoked by sitting for periods of 20 min or more. Pain is alleviated by use of a massage pad at home, medications (Norc, Ibu) w little relief, heat, ice, chiropractic treatments semi weekly x 18 visits which ended when her insurance limits were met, PT x 10 wks which she is currently in, repositioning and rest. [place] Pain Score at 16. REVIEW OF ORGAN SYSTEMS: CONSTITUTIONAL: No fevers or chills. No recent weight loss. NEUROLOGICAL: + numbness and tingling along the distal extremities. No seizure disorders or headaches. MUSCULOSKELETAL: + pain PSYCHIATRIC: Denies current depression or suicidal thoughts. Physical Examinations : Constitutional : Cooperative , not in acute distress . Neurologic : Cranial nerve II to XII intact. No focal neurological deficits. Psychiatric : alert & oriented x 3. Matching mood & appropriate affect. Judgment & insight intact. Musculoskeletal : Cervical Spine Motor strength in the deltoid and biceps: Normal right side. Normal Left side Motor strength biceps and the wrist extensors: Normal right side . Normal left side Motor strength in the triceps muscle: N ormal right side. Normal left side Deep tendon reflexes: Normal at the biceps. Normal at Brachioradialis. Normal at triceps Vertebral body tenderness to deep palpation over Cervical facet loading test: positive bilaterally Spurling test: positive bilaterally Neck distraction test: positive bilaterally Dontae sign: positive bilaterally Lumbar spine Motor strength lower extremities ,thigh and legs 5/5 Right side , 5/5 Left side Deep tendon reflexes : Normal Knee Jerk. Normal Ankle Jerk Vertebral body tenderness over Lumbar facet Loading Test: positive Right / positive Left Range of motion of the lumbar spine Flexion 30 degrees, extension 10 degrees Straight Leg Raise test: Left/ Right positive at degree Rafael test: positive right / positive left. Severe tenderness over the Sacroiliac joint on the Right / Left sides Gaenslen test: positive on R Seated flexion test: positive bilaterally. Sacral spine : Severe tenderness over the Sacroiliac joint: right side / left side Range of motion: Flexion of the lumbar spine <60 degrees Range of motion: Extension of the lumbar spine <20 degrees Gaenslen's Test positive Rafael test: positive right side / left side Thigh Thrust Test positive R R positive Sacral Thrust Test Imaging: MRI noncontrast of the lumbar spine from 08/22/22 reviewed Assessment/ Plan : BL Sacroiliitis Recommendation of R SI injection. May need a series for optimal pain relief. Risks, benefits of procedure discussed and patient verbalized understanding. Admits to aspirin or anti- coagulant use or medical history of diabetes. Script for Naproxen 500mg #60 w 1 RF. Use, side effects, adverse reactions and safe storage discussed. Protocol for discontinuation/ continuation of medications nathanael procedure discussed. All questions answered. I have spent greater than 30 minutes on patient care today. Dr Loyola was av ailable by phone for the evaluation of this patient. The time was used to review the medical records including relevant urine studies and Prescription history (MAPs), review of the available imaging, evaluation and examination of the patient, coordination of care with the medical staff and if applicable referring physicians, as well as creation of the medical record PQRS Narrative: Smoking Status Current every day smoker Hx Alcohol Use (MH) No Home Medications: Ambulatory Orders Ibuprofen [Advil] 200 mg PO Q6HR PRN 03/09/19 HYDROcodone/APAP 5-325MG [[place] 5-325] 1 tab PO Q4HR PRN 3 Days #15 tab 10/03/22 Naproxen Sodium [Naproxen Sodium ER] 500 mg PO DAILY 30 Days #60 tab 10/22/22 Controlled Substance Measures - Controlled Substance Measures Is patient prescribed a controlled substance at discharge?: No
== END ==
LOC: PNWHC3 08:31
PROVIDERS: ATTEND Specialist
DX: M46.1 Sacroiliitis, not elsewhere classified (principal); G89.29 Other chronic pain; M51.36 Other intervertebral disc degeneration, lumbar region; F17.200 Nicotine dependence, unspecified, uncomplicated; Z88.1 Allergy status to other antibiotic agents
CPT/HCPCS: 99211

== ENCOUNTER 2022-12-16 11:08 | Emergency (ER) | payer OTHER ==
[2022-12-16] MEDS ORDERED: MORPHINE SULFATE 4 MG/ML SYRINGE IVP STA (12:04)
[2022-12-16 12:40] LABS: Basophils % (A) 1 %; Eosinophils # (A) 0.2 k/uL (0-0.7); Eosinophils % (A) 4 %; HCT 42.9 % (34.0-46.0); HGB 14.8 gm/dL (11.4-16.0); Lymphocytes # (A) 1.5 k/uL (1.0-4.8); Lymphocytes % (A) 23 %; MCH 32.2 pg (25.0-35.0); MCHC 34.6 g/dL (31.0-37.0); MCV 93.1 fL (80.0-100.0); Mean Platelet Volume 8.2; Monocytes # (A) 0.3 k/uL (0-1.0); Monocytes % (A) 5 %; Neutrophils # (A) 4.4 k/uL (1.3-7.7); Neutrophils % (A) 67 %; Platelet Count 153 k/uL (150-450); RDW 12.2 % (11.5-15.5); WBC 6.5 k/uL (3.8-10.6)
--- NOTE | 2022-12-16 12:46 | ED ---
Back Pain HPI - General Chief Complaint: Back Pain/Injury Stated Complaint: Back Pain Time Seen by Provider: 12/16/22 11:30 Source: patient Limitations: no limitations - History of Present Illness Initial Comments: 42-year-old female with history of chronic back pain presents to ED with chief complaint of back pain. On 12/04/22 patient had right SI joint injection. Patient states a week after started to experience new lower back pain that has been worsening in severity. Denies saddle anesthesia, incontinence. Denies weakness. Denies fever. Denies chest pain or shortness of breath. No other complaints. - Related Data Home Medications Medication Instructions Recorded Confirmed Ibuprofen [Motrin Ib] 400 mg PO Q8H 11/30/22 11/30/22 Previous Rx's Medication Instructions Recorded methocarbamoL [Robaxin] 1,000 mg PO QID #12 tab 12/16/22 Allergies Allergy/AdvReac Type Severity Reaction Status Date / Time cefaclor [From Ceclor] Allergy Dyspnea Verified 12/16/22 11:31 Review of Systems ROS Statement: Those systems with pertinent positive or pertinent negative responses have been documented in the HPI. ROS Other: All systems not noted in ROS Statement are negative. Past Medical History Past Medical History: No Reported History Additional Past Medical History / Comment(s): Endometriosis, BACK AND R HIP PAIN. History of Any Multi-Drug Resistant Organisms: None Reported Past Surgical History: Tubal Ligation, Uterine Ablation Additional Past Surgical History / Comment(s): Exploratory abdominal surgery, dental SX, D & C, COLONOSCOPY Past Anesthesia/Blood Transfusion Reactions: Motion Sickness Past Psychological History: No Psychological Hx Reported Smoking Status: Former smoker, Vaper - Past Family History Mother Family Medical History: No Reported History General Exam Limitations: no limitations General appearance: alert, in no apparent distress ENT exam: Present: normal exam Neck exam: Present: normal inspection, other (No midline cervical spinal tenderness to palpation.) Respiratory exam: Present: normal lung sounds bilaterally Cardiovascular Exam: Present: regular rate, normal rhythm GI/Abdominal exam: Present: soft Extremities exam: Present: other (Strength and sensation equal and intact in bilateral upper and lower extremities.) Back exam: Present: other (No midline thoracic spinal tenderness to palpation. Midline lumbar tenderness to palpation at levels L3 to S1) Neurological exam: Present: alert, oriented X3 Psychiatric exam: Present: normal affect, normal mood Skin exam: Present: warm, dry Course Vital Signs 12/16/22 12/16/22 12/16/22 11:16 12:54 13:57 Temperature 99.0 F 98.2 F Pulse Rate 61 69 80 Respiratory 18 16 18 Rate Blood Pressure 148/77 120/77 132/78 O2 Sat by Pulse 97 97 100 Oximetry Medical Decision Making - Medical Decision Making Was pt. sent in by a medical professional or institution (, DARC[facility], LINE FIXER, urgent care, hospital, or assisted...) When possible be specific @ -No Did you speak to anyone other than the patient for history (EMS, parent, family, police, friend...)? What history was obtained from this source @ -No Did you review nursing and triage notes (agree or disagree)? Why? @ -I reviewed and agree with nursing and triage notes Were old charts reviewed (outside hosp., previous admission, EMS record, old EKG, old radiological studies, urgent care reports/EKG's, assisted records)? Report findings @ -Old charts reviewed. For further details please see HPI Differential Diagnosis (chest pain, altered mental status, abdominal pain women, abdominal pain men, vaginal bleeding, weakness, fever, dyspnea, syncope, headache, dizziness, GI bleed, back pain, seizure, CVA, palpatations, mental health, musculoskeletal)? @ -Differential Back Pain: Strain, zoster, cauda equina syndrome, epidural abscess, vertebral osteomyelitis, discitis, fracture, subluxation, disc herniation, DJD, spinal stenosis, dissection, AAA, pancreatitis, peptic ulcer disease, pyelonephritis, kidney stone, this is not meant to be an all-inclusive list. EKG interpreted by me (3pts min.). @ -None X-rays interpreted by me (1pt min.). @ -None done CT interpreted by me (1pt min.). @ -CT revealed evidence of degenerative disease however no evidence for epidural abscess or other acute finding. U/S interpreted by me (1pt. min.). @ -None done What testing was considered but not performed or refused? (CT, X-rays, U/S, labs)? Why? @ -None What meds were considered but not given or refused? Why? @ -None Did you discuss the management of the patient with other professionals (professionals i.e. , DARCY, LINE FIXER, lab, RT, psych nurse, social services technician, theoretical physicist, teacher, rating officer, nurse outreach case manager)? Give summary @ -No Was smoking cessation discussed for >3mins.? @ -No Was critical care preformed (if so, how long)? @ -No Were there social determinants of health that impacted care today? How? (Homele ssness, low income, unemployed, alcoholism, drug addiction, transportation, low edu. Level, literacy, decrease access to med. care, detention, rehab)? @ -No Was there de-escalation of care discussed even if they declined (Discuss DNR or withdrawal of care, Hospice)? DNR status @ -No What co-morbidities impacted this encounter? (DM, HTN, Smoking, COPD, CAD, Cancer, CVA, ARF, Chemo, Hep., AIDS, mental health diagnosis, sleep apnea, morbid obesity)? @ -Discharge. CT showed no evidence of epidural abscess. Laboratory studies reveal no elevation in white blood cell count or CRP. Patient afebrile during h er stay here in the ED. Symptoms likely musculoskeletal in nature. Be discharged home with referral to orthopedics and pain management. Discussed Precautions with the patient who verbalizes agreement. Was patient admitted / discharged? Hospital course, mention meds given and rou te, prescriptions, significant lab abnormalities, going to OR and other pertinent info. @ -hospital course Undiagnosed new problem with uncertain prognosis? @ -No Drug Therapy requiring intensive monitoring for toxicity (Heparin, Nitro, Insulin, Cardizem)? @ -No Were any procedures done? @ -No Diagnosis/symptom? @ -Back pain Acute, or Chronic, or Acute on Chronic? @ -Acute on chronic Uncomplicated (without systemic symptoms) or Complicated (systemic symptoms)? @ -Uncomplicated Side effects of treatment? @ -No Exacerbation, Progression, or Severe Exacerbation? @ -No Poses a threat to life or bodily function? How? (Chest pain, USA, OR, pneumonia, PE, COPD, DKA, ARF, appy, cholecystitis, CVA, Diverticulitis, Homicidal, Suicidal, threat to staff... and all critical care pts) @ -No - Lab Data Result diagrams: 12/16/22 12:07 12/16/22 12:07 Lab Results 12/16/22 12/16/22 Range/Units 12:07 12:07 WBC 6.5 (3.8-10.6) k/uL RBC 4.60 (3.80-5.40) m/uL Hgb 14.8 (11.4-16.0) gm/dL Hct 42.9 (34.0-46.0) % MCV 93.1 (80.0-100.0) fL MCH 32.2 (25.0-35.0) pg MCHC 34.6 (31.0-37.0) g/dL RDW 12.2 (11.5-15.5) % Plt Count 153 (150-450) k/uL MPV 8.2 Neutrophils % 67 % Lymphocytes % 23 % Monocytes % 5 % Eosinophils % 4 % Basophils % 1 % Neutrophils # 4.4 (1.3-7.7) k/uL Lymphocytes # 1.5 (1.0-4.8) k/uL Monocytes # 0.3 (0-1.0) k/uL Eosinophils # 0.2 (0-0.7) k/uL Basophils # 0.0 (0-0.2) k/uL Sodium 138 (137-145) mmol/L Potassium 4.2 (3.5-5.1) mmol/L Chloride 105 (98-107) mmol/L Carbon Dioxide 28 (22-30) mmol/L Anion Gap 5 mmol/L BUN 8 (7-17) mg/dL Creatinine 0.61 (0.52-1.04) mg/dL Est GFR (CKD-EPI)AfAm >90 (>60 ml/min/1.73 sqM) Est GFR (CKD-EPI)NonAf >90 (>60 ml/min/1.73 sqM) Glucose 96 (74-99) mg/dL Calcium 8.9 (8.4-10.2) mg/dL Total Bilirubin 0.7 (0.2-1.3) mg/dL AST 23 (14-36) U/L ALT 24 (4-34) U/L Alkaline Phosphatase 59 (38-126) U/L C-Reactive Protein 0.6 (<1.0) mg/dL Total Protein 7.1 (6.3-8.2) g/dL Albumin 4.0 (3.5-5.0) g/dL Disposition Clinical Impression: Encounter for other specified surgical aftercare Disposition: HOME SELF-CARE Condition: Good Instructions (If sedation given, give patient instructions): Acute Low Back Pain (ED) Additional Instructions: Please return to the Emergency Department if symptoms worsen or any other concerns. Prescriptions: methocarbamoL [Robaxin] 1,000 mg PO QID #12 tab Is patient prescribed a controlled substance at d/c from ED?: No Referrals: Shaheen Salgado DO [Doctor of Osteopathic Medicine] - 1-2 days Jose Laurent DO [Primary Care Provider] - 1-2 days Elenita Loyola MD [STAFF PHYSICIAN] - 1-2 days Time of Disposition: 13:46
[2022-12-16 12:56] VITALS: TEMP 98.2
--- NOTE | 2022-12-16 13:02 | CT ---
EXAMINATION TYPE: CT CervThorLumbar spine w con CT DLP: 3794 mGycm, Automated exposure control for dose reduction was used. DATE OF EXAM: 12/16/2022 12:41 PM COMPARISON: MRI 08/22/2022. CLINICAL INDICATION:Female, 42 years old with history of back pain worsening; PHH, back pain TECHNIQUE: Multiple axial images were obtained from the midportion of the spine. Soft tissue and natalie ne windows in coronal and sagittal planes were obtained and reviewed. 3-D reformats of the bones were created on a separate workstation and submitted for review. Contrast used:100 mL of Isovue 300 with IV Contrast, none. Oral contrast used: none. FINDINGS: Alignment: There are 5 lumbar type vertebral bodies within normal alignment. Bone: No evidence of fracture is identified. Mild multilevel disc degeneration changes throughout th e spine with Schmorl's nodes. Discs: No evidence for significant spinal canal or neural foraminal stenosis. Other: 3 mm right upper lobe pulmonary nodule. IMPRESSION: 1. No CT evidence for epidural abscess. It should be noted that MRI is much more sensitive for epidu ral fluid collections. Consideration for MRI with IV contrast if there remains concern for epidural a bscess. 2. No evidence for spinal fracture. 3. Mild multilevel disc degeneration changes throughout the spine without evidence for significant s da canal or neural foraminal stenosis.
[2022-12-16 13:15] LABS: ALT 24 U/L (4-34); AST 23 U/L (14-36); African American GFR (CKD) >90 (>60 ml/min/1.73 sqM); Alkaline Phosphatase 59 U/L (38-126); Anion Gap 5 mmol/L; Blood Urea Nitrogen 8 mg/dL (7-17); C Reactive Protein 0.6 mg/dL (<1.0); Calcium 8.9 mg/dL (8.4-10.2); Carbon Dioxide 28 mmol/L (22-30); Chloride 105 mmol/L (98-107); Glucose 96 mg/dL (74-99); Non-African American GFR(CKD) >90 (>60 ml/min/1.73 sqM); Potassium 4.2 mmol/L (3.5-5.1); Sodium 138 mmol/L (137-145); Total Bilirubin 0.7 mg/dL (0.2-1.3); Total Protein 7.1 g/dL (6.3-8.2)
[2022-12-16] MEDS ORDERED: ACET/COD 300 MG/30 MG STARTER PACK 6 TAB BTL PO STA (13:41)
[2022-12-16 13:58] VITALS: BP 132/78; PULSE 80; RESP 18
== END 2022-12-16 13:58 | disposition home or self-care (01) ==
LOC: EC 11:08
DX: Z48.810 Encounter for surgical aftercare following surgery on the sense organs (principal); F17.200 Nicotine dependence, unspecified, uncomplicated
CPT/HCPCS: 36415; 80053; 85025; 86140; 72129; 72126; 72132; 99284; 96374; J2270; Q9967

== ENCOUNTER → 2022-12-26 | Outpatient (CLI) | payer OTHER ==
[2022-12-26 08:53] VITALS: BP 111/78; PULSE 100; RESP 15; TEMP 97.2
--- NOTE | 2022-12-26 13:11 | P.PAINPG ---
Objective - Vital Signs Vital signs: Intake & Output 12/25/22 12/26/22 12/26/22 18:59 06:59 18:59 Weight 117.027 kg PQRS Measure Charge Sheet Comment: 42 yr old female presents today w severe and chronic LBP secondary to DDD, facet arthropathy without myelopathy and R Sacroiliitis for evaluation s/p R SI injection. Pt states she experienced 90% pain relief for the last 3 wks s/p procedure. Pt states pain level is provoked at 3 /10 in intensity, constant, localized in the lower lumbar spine/ tailbone, sharp, sore in character w shooting pain towards the R buttocks. Pain is provoked by sitting for periods of 20 min or more. Pain is alleviated by use of a massage pad at home, medications (Norc, Ibu) w little relief, heat, ice, chiropractic treatments semi weekly x 18 visits which ended when her insurance limits were met, PT x 10 wks which she is currently in, repositioning and rest. Oswetry Pain Score at 16. Interventional procedures include R SI injection x1 Medications include Sidney, Ibu REVIEW OF ORGAN SYSTEMS: CONSTITUTIONAL: No fevers or chills. No recent weight loss. NEUROLOGICAL: + numbness and tingling along the distal extremities. No seizure disorders or headaches. MUSCULOSKELETAL: + pain PSYCHIATRIC: Denies current depression or suicidal thoughts. Physical Examinations : Constitutional : Cooperative , not in acute distress . Neurologic : Cranial nerve II to XII intact. No focal neurological deficits. Psychiatric : alert & oriented x 3. Matching mood & appropriate affect. Judgment & insight intact. Musculoskeletal : Cervical Spine Motor strength in the deltoid and biceps: Normal right side. Normal Left side Motor strength biceps and the wrist extensors: Normal right side . Normal left side Motor strength in the triceps muscle: Normal right side. Normal left side Deep tendon reflexes: Normal at the biceps. Normal at Brachioradialis. Normal at triceps Vertebral body tenderness to deep palpation over Cervical facet loading test: positive bilaterally Spurling test: positive bilaterally Neck distraction test: positive bilaterally Dontae sign: positive bilaterally Lumbar spine Motor strength lower extremities ,thigh and legs 5/5 Right side , 5/5 Left side Deep tendon reflexes : Normal Knee Jerk. Normal Ankle Jerk Vertebral body tenderness over Lumbar facet Loading Test: positive Right / positive Left Range of motion of the lumbar spine Flexion 30 degrees, extension 10 degrees Straight Leg Raise test: Left/ Right positive at degree Rafael test: positive right / positive left. Severe tenderness over the Sacroiliac joint on the Right / Left sides Gaenslen test: positive on R Seated flexion test: positive bilaterally. Sacral spine : Severe tenderness over the Sacroiliac joint: right side / left side Range of motion: Flexion of the lumbar spine <60 degrees Range of motion: Extension of the lumbar spine <20 degrees Gaenslen's Test positive Rafael test: positive right side / left side Thigh Thrust Test positive R R positive Sacral Thrust Test Imaging: MRI non contrast of the lumbar spine from 08/22/22 reviewed Assessment/ Plan : R Sacroiliitis She will manage residual pain on her own and may return to clinic on an as needed basis. All questions answered. I have spent greater than 30 minutes on patient care today. Dr Loyola was available by phone for the evaluation of this patient. The time was used to review the medical records including relevant urine studies and Prescription history (MAPs), review of the available imaging, evaluation and examination of the patient, coordination of care with the medical staff and if applicable referring physicians, as well as creation of the medical record PQRS Narrative: Smoking Status Current every day smoker Hx Alcohol Use (MH) No Home Medications: Ambulatory Orders Ibuprofen [Motrin Ib] 400 mg PO Q8H 11/30/22 methocarbamoL [Robaxin] 1,000 mg PO QID #12 tab 12/16/22 Controlled Substance Measures - Controlled Substance Measures Is patient prescribed a controlled substance at discharge?: No
== END ==
LOC: PNWHC3 08:29
PROVIDERS: ATTEND Specialist
DX: M46.1 Sacroiliitis, not elsewhere classified (principal); F17.200 Nicotine dependence, unspecified, uncomplicated; Z88.8 Allergy status to other drugs, medicaments and biological substances
CPT/HCPCS: 99211

== ENCOUNTER → 2023-03-18 | Outpatient (CLI) | payer OTHER ==
--- NOTE | 2023-03-19 12:09 | MM ---
Reason for Exam: Screening (asymptomatic). Last screening mammogram was performed 12 month(s) ago. Patient History: Menarche at age 16. First Full-Term at age 23. Premenopausal. Patient has history of breast feeding. Currently using Hormonal Contraceptives, starting at age 42. 03/14/2021, Benign Core Biopsy on the left side. 03/19/2019, Benign Core Biopsy on the left side. Maternal grandmother had breast cancer. Maternal aunt had breast cancer, age 65. Risk Values: Tierra 5 year model risk: 1.2%. NCI Lifetime model risk: 13.3%. Prior Study Comparison: 02/23/2021 Bilateral Screening Mammogram, [facility]. 03/14/2021 Left Diagnostic Mammogram, [facility]. 03/15/2022 Bilateral MG screening mammo w CAD, [facility]. Tissue Density: There are scattered fibroglandular densities. Findings: Analyzed By CAD. Appears symmetrical and stable. There is a 1.6 cm circumscribed nodule lower inner aspect left breast were 0.6 cm from the nipple. 2. Core markers are adjacent no significant interval changes are evident. No suspicious groups of microcalcifications, spiculated or lobular masses, architectural distortion or other secondary signs of malignancy are mammographically apparent. Overall Assessment: Benign, BI-RAD 2 Management: Screening Mammogram of both breasts in 1 year. A negative mammogram report should not preclude additional follow up of suspicious palpable abnormalities. Patient should continue monthly self breast exam. A clinical breast exam by your physician is recommended on an annual basis and results should be correlated with mammographic findings. Electronically signed and approved by: Nelson Portillo D.O. Radiologis
== END | disposition home or self-care (01) ==
LOC: RADMAMWWP 09:32
PROVIDERS: ATTEND Surgery
DX: Z12.31 Encounter for screening mammogram for malignant neoplasm of breast (principal); Z80.3 Family history of malignant neoplasm of breast
CPT/HCPCS: 77063; 77067

== ENCOUNTER → 2023-03-22 | Outpatient (CLI) | payer OTHER ==
[2023-03-22 09:06] VITALS: BP 126/82; PULSE 103; RESP 18; TEMP 98.5
--- NOTE | 2023-03-22 09:38 | P.PN ---
Subjective Progress Note Date: 03/22/23 fibroadenoma/ fibrocystic breast disease fibroadenoma right breast core biopsy fibroadenlisa Ring is a 40 -year-old white female who had her first ever mammogram performed on . This revealed a 1 cm focal asymmetry in the left breast near palpable area of concern. An ultrasound was recommended. The ultrasound revealed an 11 x 10 cm solid lesion at 9:00 the breast was scanned from -. This was considered suspicious BIRADS 4 and ultrasound-guided core biopsy was recommended. She underwent an ultrasound-guided core biopsy of the lesion on [id number]. Pathology revealed focal PASH with background fibrocystic changes. She underwent a bilateral mammogram and ultrasound on . This revealed a 17 mm oval mass in the lower inner quadrant of the left breast which had increased in size. The patient had an ultrasound performed which revealed a 1.6 x 1.5 cm smooth solid hypoechoic lesion at 9:00 increase in size. Ultrasound core biopsy of the lesion was recommended. She states the left breast is tender, she does not feel any discrete lumps masses or nodules of concern in either breast. At this time she is not having any abnormal nipple discharge or skin changes. She had a left breast core biopsy approximately one year ago and has not had any other procedures on her either breast. She's not had any recent history of trauma or infection in the breast. Ultrasound core biopsy of the 9:00 left breast lesion was preformed on 03-14-21, this was a fibroadenoma. 09-21-21 The patient had a left breast ultrasound on 09-14-21. This revealed the fibroadenoma was stable at 1.6 by 1.4 by 0.9 CM. The patient complains of a rash over her upper right breast. She has not complained of any lumps masses or nodules of concern in either breast. She is not complaining of any nipple discharge or skin changes She has had a similar thing in the past and was told it was atopic dermatitis and she was recommended to have to go tanning which she did and this resolved. Recently she started tanning again and initially went away but then came back. She has been using hydrocortisone cream without any results. 04-27-22 Patient underwent a bilateral screening mammogram on [id number]. This was benign BIRADS 2. The patient does not complain of any lumps masses or nodules of concern in either breast. She has a known fibroadenoma of the left breast which has been stable. 03-22-23 Patient underwent a bilateral screening mammogram on 03-18-23 which was BIRAD 2. Is not complaining of any new lumps masses or nodules of concern in either breast. There is a 1.6 cm nodule lower inner aspect left breast 0.6 cm from the nipple no significant interval changes evident. No suspicious groups of microcalcifications or spiculated or lobular masses. This is felt to be stable. caffiene: 1 pot coffee/day now down to 2 cups/day nicotine: stopped smoking 1 / PPD stopped about 2 years ago, does vape chocolate: occasional Family History: 1. maternal aunt: bilateral mastectomy at 59 2. maternal aunt: ovarian cancer 3. maternal aunt: cervical cancer Hormonal History: menarche: 17 , breast fed: yes, first born at 24 BCP: 9 months hormones: none Surgical history: 1. exploratory lap endometriosis 2. tubal 3. dental surgery 4. colonoscopy 5. core biopsy of the left breast Medical history: back pain ? slipped disc Social History: smoke: 1/2- 1 PPD for 24 years stopped 2 months ago alcohol: daily drugs: none - Constitutional Constitutional: Denies chills, Denies fever - EENT Eyes: denies blurred vision, denies pain Ears: deny: decreased hearing, tinnitus Ears, nose, mouth and throat: Denies headache, Denies sore throat - Breasts Breasts: bilateral: as per HPI - Cardiovascular Cardiovascular: Denies chest pain, Denies shortness of breath - Respiratory Comment: smoker - Gastrointestinal Gastrointestinal: Denies abdominal pain, Denies diarrhea, Denies nausea, Denies vomiting - Genitourinary (Female) Genitourinary: Denies dysuria, Denies hematuria - Menstruation Menstruation: Reports cycle variable - Musculoskeletal Musculoskeletal: Reports myalgias - Integumentary Integumentary: Reports rash, Denies pruritus - Neurological Neurological: Reports numbness - Psychiatric Psychiatric: Reports anxiety/ depression - Endocrine Endocrine: Denies fatigue, Denies weight change - Hematologic/Lymphatic Comment: Objective - Vital Signs Vital signs: Vital Signs Temp 98.5 F 03/22/23 09:03 Pulse 103 H 03/22/23 09:03 Resp 18 03/22/23 09:03 BP 126/82 03/22/23 09:03 Pulse Ox 100 03/22/23 09:03 FiO2 Intake & Output 03/21/23 03/22/23 03/22/23 18:59 06:59 18:59 Weight 106.594 kg - Constitutional General appearance: Present: cooperative - EENT Eyes: Present: EOMI ENT: Present: hearing grossly normal - Neck Neck: Present: normal ROM - Respiratory Respiratory: bilateral: CTA - Cardiovascular Rhythm: regular Heart sounds: normal: S1, S2 - Integumentary Integumentary: Present: normal turgor - Musculoskeletal Musculoskeletal: Present: gait normal - Psychiatric Psychiatric: Present: A&O x's 3, appropriate affect, intact judgment & insight - Additional findings Additional findings: Breast Examination: BRA: [id number] Inspection: Grade 3 ptosis Palpation: Right breast: Multi-positional exam fibrocystic changes no dominant masses or nodules of concern Right axilla: No adenopathy of concern Left breast: Multi-positional exam fibrocystic changes no dominant masses or nodules of concern Left axilla: No adenopathy of concern Assessment and Plan Assessment: Impression: Fibrocystic breast changes Bilateral mammogram 1030-23 benign BIRADS 2 Plan: Bilateral mammogram in 1 year with physician exam at that time Cc: Dr. Laurent Additional CC's: Jose Laurent
== END ==
LOC: WWCWWP 08:52
PROVIDERS: ATTEND Surgery
DX: N60.11 Diffuse cystic mastopathy of right breast (principal); D24.2 Benign neoplasm of left breast; Z87.891 Personal history of nicotine dependence; Z88.8 Allergy status to other drugs, medicaments and biological substances

== ENCOUNTER 2023-09-03 08:26 | Emergency (ER) | payer OTHER ==
[2023-09-03 09:03] LABS: Basophils % (A) 0 %; Eosinophils # (A) 0.2 k/uL (0-0.7); Eosinophils % (A) 3 %; HCT 42.4 % (34.0-46.0); HGB 14.6 gm/dL (11.4-16.0); Lymphocytes # (A) 1.5 k/uL (1.0-4.8); Lymphocytes % (A) 21 %; MCH 31.3 pg (25.0-35.0); MCHC 34.5 g/dL (31.0-37.0); MCV 90.7 fL (80.0-100.0); Mean Platelet Volume 8.4; Monocytes # (A) 0.2 k/uL (0-1.0); Monocytes % (A) 3 %; Neutrophils # (A) 4.9 k/uL (1.3-7.7); Neutrophils % (A) 70 %; Platelet Count 183 k/uL (150-450); RBC 4.68 m/uL (3.80-5.40); RDW 12.8 % (11.5-15.5)
[2023-09-03 09:20] LABS: ALT 25 U/L (4-34); AST 23 U/L (14-36); African American GFR (CKD) >90 (>60 ml/min/1.73 sqM); Albumin 3.9 g/dL (3.5-5.0); Alkaline Phosphatase 84 U/L (38-126); Amylase 51 U/L (30-110); Anion Gap 7 mmol/L; Blood Urea Nitrogen 6 mg/dL (7-17); Calcium 9.2 mg/dL (8.4-10.2); Carbon Dioxide 24 mmol/L (22-30); Chloride 109 mmol/L (98-107); Glucose 123 mg/dL (74-99); Lipase 55 U/L (23-300); Magnesium 1.7 mg/dL (1.6-2.3); Non-African American GFR(CKD) >90 (>60 ml/min/1.73 sqM); Sodium 140 mmol/L (137-145); Total Bilirubin 0.7 mg/dL (0.2-1.3); Total Protein 6.5 g/dL (6.3-8.2)
[2023-09-03 09:26] LABS: Appearance,Urine Cloudy (Clear); Bilirubin,Urine Negative (Negative); Blood,Urine Negative (Negative); Color,Urine Light Yellow; Glucose,Urine (UA) Negative (Negative); Ketones,Urine Negative (Negative); Leukocyte Esterase,Urine Negative (Negative); Mucus,Urine Rare /hpf; Nitrite,Urine Negative (Negative); Protein,Urine Negative (Negative); Specific Gravity,Urine 1.017 (1.001-1.035); Squamous Epithelial Cell,Urine 15 /hpf (0-4); Urobilinogen,Urine <2.0 mg/dL (<2.0); WBC,Urine 1 /hpf (0-5)
[2023-09-03] MEDS: KETOROLAC 15 MG/ML 1 ML VIAL IVP STA ×2 (09:27→11:07)
[2023-09-03] MEDS: SODIUM CHLORIDE 0.9% 1,000 ML IV ONE (09:27)
[2023-09-03] MEDS: ONDANSETRON 4 MG/2 ML VIAL IVP STA (09:27)
[2023-09-03] MEDS: SODIUM CHLORIDE 0.9% 500 ML 500 ML IV ONE (09:28)
--- NOTE | 2023-09-03 10:40 | CT ---
EXAMINATION TYPE: CT abdomen pelvis w con DATE OF EXAM: 09/03/2023 COMPARISON: 11/14/2017 INDICATION: RLQ pain x1 week, pt states nausea, vomiting, fever started today DLP: 2418 mGycm, Automated exposure control for dose reduction was used. CONTRAST: 100 mL of Isovue 300. Study performed without Oral Contrast TECHNIQUE: Axial images were obtained from above the diaphragm to the pubic rami in the axial plane a t 5 mm thick sections. Reconstructed images are reviewed on the computer in the coronal plane. FINDINGS: Limited CT sections are obtained the lung bases. The lung bases are clear. CT ABDOMEN: Liver: Normal Spleen: Normal Pancreas: Normal Adrenal glands: The adrenal glands are normal. Gallbladder: Normal Kidneys: No masses are evident. No hydronephrosis is present. No cysts are present. Delayed images were obtained and appear unremarkable. Aorta: Mild Vascular calcification is within the aorta. Inferior vena cava: Normal. CT PELVIS: Loops of bowel within the abdomen and pelvis are normal. The study is lateral contrast limiting b owel evaluation. Appendix: Normal as visualized. No suspicious inflammatory changes or dilated tubular structures evid ent. Urinary bladder: Normal. Genitourinary structures: Uterus is normal. Surgical clips are in the broad ligament regions. Small f ollicles may be of the ovaries bilaterally. Osseous structures: No suspicious lytic or sclerotic lesions. IMPRESSION: 1. No suspicious abnormalities to account for right lower quadrant pain. Appendix appears normal
--- NOTE | 2023-09-03 10:55 | ED ---
Abdominal Pain HPI - General Chief Complaint: Abdominal Pain Stated Complaint: abd pain Time Seen by Provider: 09/03/23 08:34 Source: patient, RN notes reviewed Mode of arrival: ambulatory Limitations: no limitations - History of Present Illness Initial Comments: 43-year-old female presents emergency department chief complaint of abdominal pain. Patient states started overnight states he had a fever chills vomiting diarrhea and right side abdominal pain no prior abdominal surgeries denies any sick contacts no chest pain no flank pain no dysuria. - Related Data Home Medications Medication Instructions Recorded Confirmed medroxyPROGESTERone [Depo-Provera] 150 mg IM Q84D 03/22/23 09/03/23 Ibuprofen [Motrin] 800 mg PO Q8H PRN 09/03/23 09/03/23 Multivitamins, Thera [Multivitamin 1 tab PO DAILY 09/03/23 09/03/23 (formulary)] Previous Rx's Medication Instructions Recorded Ketorolac [Toradol] 10 mg PO Q8HR #15 tab 09/03/23 Ondansetron Odt [Zofran Odt] 4 mg PO Q8HR PRN #10 tab 09/03/23 Allergies Allergy/AdvReac Type Severity Reaction Status Date / Time cefaclor [From Ceclor] Allergy Dyspnea Verified 09/03/23 10:44 Review of Systems ROS Statement: Those systems with pertinent positive or pertinent negative responses have been documented in the HPI. ROS Other: All systems not noted in ROS Statement are negative. Past Medical History Past Medical History: No Reported History Additional Past Medical History / Comment(s): Endometriosis, BACK AND R HIP PAIN. History of Any Multi-Drug Resistant Organisms: None Reported Past Surgical History: Tubal Ligation, Uterine Ablation Additional Past Surgical History / Comment(s): Exploratory abdominal surgery, dental SX, D & C, COLONOSCOPY Past Anesthesia/Blood Transfusion Reactions: Motion Sickness Past Psychological History: No Psychological Hx Reported Smoking Status: Former smoker, Vaper Past Alcohol Use History: Daily Past Drug Use History: None Reported - Past Family History Mother Family Medical History: No Reported History General Exam Limitations: no limitations General appearance: alert, in no apparent distress Head exam: Present: atraumatic, normocephalic, normal inspection Eye exam: Present: normal appearance, PERRL, EOMI. Absent: scleral icterus, conjunctival injection, periorbital swelling ENT exam: Present: normal exam, normal oropharynx, mucous membranes moist Neck exam: Present: normal inspection. Absent: tenderness, meningismus, lymphadenopathy Respiratory exam: Present: normal lung sounds bilaterally. Absent: respiratory distress, wheezes, rales, rhonchi, stridor Cardiovascular Exam: Present: regular rate, normal rhythm, normal heart sounds. Absent: systolic murmur, diastolic murmur, rubs, gallop, clicks GI/Abdominal exam: Present: soft, tenderness, normal bowel sounds. Absent: distended, guarding, rebound, rigid Back exam: Absent: CVA tenderness (R), CVA tenderness (L) Neurological exam: Present: alert Skin exam: Present: warm, dry, intact, normal color. Absent: rash Course Vital Signs 09/03/23 08:33 Temperature 98 F Pulse Rate 79 Respiratory 18 Rate Blood Pressure 156/96 O2 Sat by Pulse 100 Oximetry Medical Decision Making - Medical Decision Making Was pt. sent in by a medical professional or institution (, PA, CONSULT[employer], urgent care, hospital, or [place] health care facility...) When possible be specific @ -No Did you speak to anyone other than the patient for history (EMS, parent, family, police, friend...)? What history was obtained from this source @ -No Did you review nursing and triage notes (agree or disagree)? Why? @ -I reviewed and agree with nursing and triage notes Were old charts reviewed (outside hosp., previous admission, EMS record, old EKG, old radiological studies, urgent care reports/EKG's, [place] health care facility records)? Report findings @ -No old charts were reviewed Differential Diagnosis (chest pain, altered mental status, abdominal pain women, abdominal pain men, vaginal bleeding, weakness, fever, dyspnea, syncope, headache, dizziness, GI bleed, back pain, seizure, CVA, palpatations, mental health, musculoskeletal)? @ -Differential Abdominal Pain Women: Appendicitis, Cholecystitis, diverticulosis, ischemic bowel, pancreatitis, hepatitis, UTI, gastroenteritis, AAA, incarcerated hernia, bowel obstruction, constipation, inflammatory bowel, hepatitis, peptic ulcer disease, splenic infarction, perforated viscus, vulvitis, ovarian torsion, PID, kidney stone, placenta abruption, this is not meant to be an all-inclusive list EKG interpreted by me (3pts min.). @ -None X-rays interpreted by me (1pt min.). @ -None done CT interpreted by me (1pt min.). @ -CT abdomen pelvis shows no acute intra-abdominal process normal appendix noted U/S interpreted by me (1pt. min.). @ -None done What testing was considered but not performed or refused? (CT, X-rays, U/S, labs)? Why? @ -None What meds were considered but not given or refused? Why? @ -None Did you discuss the management of the patient with other professionals (professionals i.e. , PA, CONSULT[employer], lab, RT, psych nurse, social and political studies professor, capsule filling machine operator, teacher, examining officer, case monitor)? Give summary @ -No Was smoking cessation discussed for >3mins.? @ -No Was critical care preformed (if so, how long)? @ -No Were there social determinants of health that impacted care today? How? (Homelessness, low income, unemployed, alcoholism, drug addiction, transportation, low edu. Level, literacy, decrease access to med. care, correction, rehab)? @ -No Was there de-escalation of care discussed even if they declined (Discuss DNR or withdrawal of care, Hospice)? DNR status @ -No What co-morbidities impacted this encounter? (DM, HTN, Smoking, COPD, CAD, Cancer, CVA, ARF, Chemo, Hep., AIDS, mental health diagnosis, sleep apnea, morbid obesity)? @ -None Was patient admitted / discharged? Hospital course, mention meds given and route, prescriptions, significant lab abnormalities, going to OR and other pertinent info. @ -Discharge patient has viral enteritis, gastroenteritis patient is discharged in stable addition she does feel improved after IV fluids and antiemetics. Obtain CT results that were within normal limits. Undiagnosed new problem with uncertain prognosis? @ -No Drug Therapy requiring intensive monitoring for toxicity (Heparin, Nitro, Insulin, Cardizem)? @ -No Were any procedures done? @ -No Diagnosis/symptom? @ -Gastroenteritis Acute, or Chronic, or Acute on Chronic? @ -Acute Uncomplicated (without systemic symptoms) or Complicated (systemic symptoms)? @ -Uncomplicated Side effects of treatment? @ -No Exacerbation, Progression, or Severe Exacerbation? @ -No Poses a threat to life or bodily function? How? (Chest pain, USA, MA, pneumonia, PE, COPD, DKA, ARF, appy, cholecystitis, CVA, Diverticulitis, Homicidal, Pro icidal, threat to staff... and all critical care pts) @ -No - Lab Data Result diagrams: 09/03/23 08:56 09/03/23 08:56 Lab Results 09/03/23 09/03/23 09/03/23 Range/Units 08:48 08:56 08:56 WBC 7.0 (3.8-10.6) k/uL RBC 4.68 (3.80-5.40) m/uL Hgb 14.6 (11.4-16.0) gm/dL Hct 42.4 (34.0-46.0) % MCV 90.7 (80.0-100.0) fL MCH 31.3 (25.0-35.0) pg MCHC 34.5 (31.0-37.0) g/dL RDW 12.8 (11.5-15.5) % Plt Count 183 (150-450) k/uL MPV 8.4 Neutrophils % 70 % Lymphocytes % 21 % Monocytes % 3 % Eosinophils % 3 % Basophils % 0 % Neutrophils # 4.9 (1.3-7.7) k/uL Lymphocytes # 1.5 (1.0-4.8) k/uL Monocytes # 0.2 (0-1.0) k/uL Eosinophils # 0.2 (0-0.7) k/uL Basophils # 0.0 (0-0.2) k/uL Sodium 140 (137-145) mmol/L Potassium 4.0 (3.5-5.1) mmol/L Chloride 109 H (98-107) mmol/L Carbon Dioxide 24 (22-30) mmol/L Anion Gap 7 mmol/L BUN 6 L (7-17) mg/dL Creatinine 0.66 (0.52-1.04) mg/dL Est GFR (CKD-EPI)AfAm >90 (>60 ml/min/1.73 sqM) Est GFR (CKD-EPI)NonAf >90 (>60 ml/min/1.73 sqM) Glucose 123 H (74-99) mg/dL Calcium 9.2 (8.4-10.2) mg/dL Magnesium 1.7 (1.6-2.3) mg/dL Total Bilirubin 0.7 (0.2-1.3) mg/dL AST 23 (14-36) U/L ALT 25 (4-34) U/L Alkaline Phosphatase 84 (38-126) U/L Total Protein 6.5 (6.3-8.2) g/dL Albumin 3.9 (3.5-5.0) g/dL Amylase 51 (30-110) U/L Lipase 55 (23-300) U/L Urine Color Light Yellow Urine Appearance Cloudy H (Clear) Urine pH 8.0 (5.0-8.0) Ur Specific [place] 1.017 (1.001-1.035) Urine Protein Negative (Negative) Urine Glucose (UA) Negative (Negative) Urine Ketones Negative (Negative) Urine Blood Negative (Negative) Urine Nitrite Negative (Negative) Urine Bilirubin Negative (Negative) Urine Urobilinogen <2.0 (<2.0) mg/dL Ur Leukocyte Esterase Negative (Negative) Urine WBC 1 (0-5) /hpf Ur Squamous Epith Cells 15 H (0-4) /hpf Urine Mucus Rare H (None) /hpf Disposition Clinical Impression: Gastroenteritis Disposition: HOME SELF-CARE Condition: Stable Instructions (If sedation given, give patient instructions): Gastroenteritis (ED) Additional Instructions: Please return to the Emergency Department if symptoms worsen or any other concerns. Prescriptions: Ketorolac [Toradol] 10 mg PO Q8HR #15 tab Ondansetron Odt [Zofran Odt] 4 mg PO Q8HR PRN #10 tab PRN Reason: Nausea Is patient prescribed a controlled substance at d/c from ED?: No Referrals: Jose Laurent DO [Primary Care Provider] - 1-2 days Time of Disposition: 10:55
[2023-09-03 11:44] VITALS: BP 138/78; PULSE 67; RESP 15; TEMP 98.5
== END 2023-09-03 11:49 | disposition home or self-care (01) ==
LOC: EC 08:26
DX: K52.9 Noninfective gastroenteritis and colitis, unspecified (principal); F17.290 Nicotine dependence, other tobacco product, uncomplicated; Z88.8 Allergy status to other drugs, medicaments and biological substances
CPT/HCPCS: 36415; 80053; 82150; 83690; 83735; 85025; 81001; 74177; 99284; 96374; 96375; 96376; 96361 ×2; J2405; J1885; Q9967

== ENCOUNTER → 2024-03-19 | Outpatient (CLI) | payer OTHER ==
--- NOTE | 2024-03-19 11:37 | MM ---
Reason for Exam: Screening (asymptomatic). Last screening mammogram was performed 12 month(s) ago. Patient History: Menarche at age 16. First Full-Term at age 23. Premenopausal. Patient has history of breast feeding. Currently using Hormonal Contraceptives, starting at age 42. 03/14/2021, Benign Core Biopsy on the left side. 03/19/2019, Benign Core Biopsy on the left side. Maternal grandmother had breast cancer. Maternal aunt had breast cancer, age 65. Risk Values: Tierra 5 year model risk: 1.3%. NCI Lifetime model risk: 13.1%. Prior Study Comparison: 03/14/2021 Left Diagnostic Mammogram, [facility]. 03/15/2022 Bilateral MG screening mammo w CAD, [facility]. 03/18/2023 Bilateral MG 3D screening mammo w/cad, [facility]. Tissue Density: The breasts are almost entirely fatty. Findings: Analyzed By CAD. Right breast: There is no suspicious group of microcalcifications or new suspicious mass. Left breast: Stable left breast lesion with biopsy clips. There is no suspicious group of microcalcifications or new suspicious mass. Overall Assessment: Benign, BI-RAD 2 Management: Screening Mammogram of both breasts in [address] [facility] will attempt to contact patient to return for supplemental views and ultrasound if indicated. Patient should continue monthly self-breast exams. A clinical breast exam by your physician is recommended on an annual basis. This exam should not preclude additional follow-up of suspicious palpable abnormalities. Note on Tierra scores and lifetime risk: 1. A Tierra score greater than 3% is considered moderate risk. If this is the case, consider specialist referral to assess eligibility for a risk reducing agent. 2. If overall lifetime risk for the development of breast cancer is 20% or higher, the patient may qualify for future screening with alternating mammogram and breast MRI. [facility], , 03/19/2024 11:33 AM. Electronically signed and approved by: Dallas Layton DO
== END | disposition home or self-care (01) ==
LOC: RADMAMWWP 08:26
PROVIDERS: ATTEND Surgery
CPT/HCPCS: 77063; 77067

== ENCOUNTER → 2024-05-07 | Outpatient (CLI) | payer OTHER ==
[2024-05-07 09:55] VITALS: BP 153/87; PULSE 51; RESP 17; TEMP 98.7
--- NOTE | 2024-05-07 10:00 | P.PN ---
Subjective Progress Note Date: 05/07/24 Principal diagnosis: fibrocystic breast/fibroadenoma 05-07-24 Patient underwent a bilateral screening mammogram on 03-19-24 which was BIRAD 2. Is not complaining of any new lumps masses or nodules of concern in either breast. There was a 1.6 cm nodule in 2022 in the lower inner aspect left breast 0.6 cm from the nipple no significant interval changes had occured. Prior biopsy was fibroadenoma. No suspicious groups of microcalcifications or spiculated or lobular masses. This is felt to be stable. The mammogram from 03-19-24 was personally reviewed and discussed with Dr. Coelho. Patient does have a slight fungal infection under her right breast. (She is excited her first grandson born 05-16-24) caffiene: 1 pot coffee/day now down to 2 cups/day nicotine: stopped smoking 1 1/2 PPD stopped about 2 years ago, does vape chocolate: occasional Family History: 1. maternal aunt: bilateral mastectomy at 59 2. maternal aunt: ovarian cancer 3. maternal aunt: cervical cancer Hormonal History: menarche: 17 , breast fed: yes, first born at 24 BCP: 9 months hormones: none Surgical history: 1. exploratory lap endometriosis 2. tubal 3. dental surgery 4. colonoscopy 5. core biopsy of the left breast Medical history: back pain ? slipped disc Social History: smoke: 1/2- 1 PPD for 24 years stopped 2 months ago alcohol: daily drugs: none - Constitutional Constitutional: Denies chills, Denies fever - EENT Eyes: denies blurred vision, denies pain Ears: deny: decreased hearing, tinnitus Ears, nose, mouth and throat: Denies headache, Denies sore throat - Breasts Breasts: bilateral: as per HPI - Cardiovascular Cardiovascular: Denies chest pain, Denies shortness of breath - Respiratory Comment: smoker - Gastrointestinal Gastrointestinal: Denies abdominal pain, Denies diarrhea, Denies nausea, Denies vomiting - Genitourinary (Female) Genitourinary: Denies dysuria, Denies hematuria - Menstruation Menstruation: Reports cycle variable - Musculoskeletal Musculoskeletal: Reports myalgias - Integumentary Integumentary: Reports rash, Denies pruritus - Neurological Neurological: Reports numbness - Psychiatric Psychiatric: Reports anxiety/ depression - Endocrine Endocrine: Denies fatigue, Denies weight change - Hematologic/Lymphatic Comment: Objective - Constitutional General appearance: Present: cooperative - EENT Eyes: Present: EOMI ENT: Present: hearing grossly normal - Neck Neck: Present: normal ROM - Respiratory Respiratory: bilateral: CTA - Cardiovascular Rhythm: regular Heart sounds: normal: S1, S2 - Integumentary Integumentary: Present: normal turgor - Musculoskeletal Musculoskeletal: Present: gait normal - Psychiatric Psychiatric: Present: A&O x's 3, appropriate affect, intact judgment & insight - Additional findings Additional findings: Breast Examination: BRA: 42DDD Inspection: Grade 3 ptosis Palpation: Right breast: Multi-positional exam fibrocystic changes no dominant masses or nodules of concern, fungal infection under right breast Right axilla: No adenopathy of concern Left breast: Multi-positional exam fibrocystic changes no dominant masses or nodules of concern Left axilla: No adenopathy of concern Assessment and Plan Assessment: Impression: Fibrocystic breast changes Bilateral mammogram 1031-24 benign BIRADS [address] Coelho fungal infection under right breast Plan: Bilateral mammogram in 1 year with physician exam at that time nystatin as needed under right breast follow up sooner if any concerns Cc: Dr. Laurent
== END ==
LOC: WWCWWP 08:19
PROVIDERS: ATTEND Surgery
DX: R92.8 Other abnormal and inconclusive findings on diagnostic imaging of breast (principal); N60.11 Diffuse cystic mastopathy of right breast; B48.8 Other specified mycoses; Z88.8 Allergy status to other drugs, medicaments and biological substances; Z87.891 Personal history of nicotine dependence